=== PATIENT | male | born 2000 | race American Indian/Alaskan Native ===

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

== ENCOUNTER 2021-01-27 01:17 | Emergency (ER) | payer MEDICAID ==
--- NOTE | 2021-01-27 03:01 | Event Note ---
ED Screening Note Date of service: 01/27/21 Time: 03:01 ED Screening Note: Patient complains of auditory hallucinations History of schizophrenia and noncompliance with medications No SI/HI This initial assessment/diagnostic orders/clinical plan/treatment(s) is/are subject to change based on patients health status, clinical progression and re- assessment by fellow clinical providers in the ED. Further treatment and workup at subsequent clinical providers discretion. Patient/guardian urged not to elope from the ED as their condition may be serious if not clinically assessed and managed. Initial orders include: Labs Mental health eval
[2021-01-27 03:36] LABS: Basophils # (Auto) 0.1 K/mm3 (0.0-0.1); Basophils % (Auto) 0.5 % (0.0-1.8); Eosinophils # (Auto) 0.2 K/mm3 (0.0-0.4); Eosinophils % (Auto) 1.4 % (0.0-4.3); Hematocrit 46.7 % (35.5-45.6); Hemoglobin 15.1 gm/dl (11.8-15.2); Lymphocytes # (Auto) 4.2 K/mm3 (1.2-5.4); Lymphocytes % (Auto) 29.9 % (13.4-35.0); Mean Corpuscular HGB Conc 32 % (32-34); Mean Corpuscular Volume 82 fl (84-94); Monocytes # (Auto) 1.1 K/mm3 (0.0-0.8); Monocytes % (Auto) 7.5 % (0.0-7.3); Platelet Count 409 K/mm3 (140-440); Red Blood Count 5.72 M/mm3 (3.65-5.03); Red Cell Distribution Width 13.9 % (13.2-15.2)
[2021-01-27 03:47] LABS: BUN/Creatinine Ratio 14; Blood Urea Nitrogen 11 mg/dL (9-20); Calcium 9.7 mg/dL (8.4-10.2); Hemolysis Index 12
--- NOTE | 2021-01-27 03:57 | Emergency Department Report ---
HPI - General Chief Complaint: Psych Time Seen by Provider: 01/27/21 03:42 - HPI HPI: Room 12 A The patient is a 20-year-old male present with a chief complaint of auditory visual hallucinations. The patient has a history of psychosis and states he stopped taking his medication 2 days ago. The patient states he has had intermittent auditory visual hallucinations for the past 2 years but they worsened approximately 1 month ago. Patient states the voices say things such as "you did this" or "you did that" or "do these types of things." Patient st ates he also has visual hallucinations believing he has seen "souls" and is able to see "through a wall." The patient states 2 days ago he had suicidal ideation but did not make any attempts. Patient currently denies suicidal ideation ED Past Medical Hx - Past Medical History Previous Medical History?: Yes Hx Psychiatric Treatment: Yes (Psychosis) - Surgical History Past Surgical History?: No - Family History Family history: no significant - Social History Smoking Status: Current Every Day Smoker (1/2 pack/day) Substance Use Type: None (Denies illicit drug use) - Medications Home Medications: Home Medications Medication Instructions Recorded Confirmed Last Taken Type Amoxicillin/Potassium Clav 400 mg PO Q8H #100 ml 07/25/13 08/11/20 Unknown Rx [Augmentin 400-57MG / 5ml] OLANzapine [ZyPREXA] 5 mg PO QAM 08/11/20 08/11/20 Unknown History OLANzapine [Zyprexa] 10 mg PO QHS 08/11/20 08/11/[address] [Marek PEREZ] 125 mg PO BID #60 tablet 01/28/21 Unknown Rx OLANZapine [Zyprexa] 5 mg PO DAILY #30 tablet 01/28/21 Unknown Rx OLANzapine [Zyprexa] 10 mg PO QHS #30 tablet 01/28/21 Unknown Rx traZODone [Desyrel] 50 mg PO QHS #30 tab 01/28/21 Unknown Rx ED Review of Systems ROS: Stated complaint: BEHAVIORAL/PSYCHIATRIC DISORDER Other details as noted in HPI Constitutional: no symptoms reported Eyes: denies: eye pain ENT: denies: throat pain Respiratory: no symptoms reported Cardiovascular: denies: chest pain Endocrine: no symptoms reported Gastrointestinal: denies: abdominal pain Genitourinary: denies: dysuria Musculoskeletal: denies: back pain Neurological: denies: headache Psychiatric: auditory hallucinations, visual hallucinations, suicidal thoughts Physical Exam - Physical Exam Vital Signs: Vital Signs 01/27/21 02:01 Temperature 98.4 F Pulse Rate 105 H Respiratory 18 Rate Blood Pressure 145/86 O2 Sat by Pulse 97 Oximetry Physical Exam: GENERAL: The patient is well-developed well-nourished male sitting in chair not appearing to be in acute distress HEENT: Normocephalic. Atraumatic. Extraocular motions are intact. Patient has moist mucous membranes. NECK: Supple. Trachea midline CHEST/LUNGS: Clear to auscultation. There is no respiratory distress noted. HEART/CARDIOVASCULAR: Regular. There is no tachycardia. There is no gallop rub or murmur. ABDOMEN: Abdomen is soft, nontender. Patient has normal bowel sounds. There is no abdominal distention. SKIN: There is no rash. There is no edema. There is no diaphoresis. NEURO: The patient is awake, alert, and oriented. The patient is cooperative. The patient has no focal neurologic deficits. The patient has normal speech and gait. MUSCULOSKELETAL: There is no evidence of acute injury. ED Course Vital Signs 01/27/21 02:01 Temperature 98.4 F Pulse Rate 105 H Respiratory 18 Rate Blood Pressure 145/86 O2 Sat by Pulse 97 Oximetry ED Medical Decision Making - Lab Data Result diagrams: 01/27/21 02:36 01/27/21 02:36 Laboratory Tests 01/27/21 01/27/21 01/27/21 02:36 02:36 02:36 WBC 14.2 H RBC 5.72 H Hgb 15.1 Hct 46.7 H MCV 82 L MCH 27 L MCHC 32 RDW 13.9 Plt Count 409 Lymph % (Auto) 29.9 [place] % (Auto) 7.5 H Eos % (Auto) 1.4 Baso % (Auto) 0.5 Lymph # (Auto) 4.2 [place] # (Auto) 1.1 H Eos # (Auto) 0.2 Baso # (Auto) 0.1 Seg Neutrophils % 60.7 Seg Neutrophils # 8.6 H Sodium 138 Potassium 3.9 Chloride 100.3 Carbon Dioxide 23 Anion Gap 19 BUN 11 Creatinine 0.8 Estimated GFR > 60 BUN/Creatinine Ratio 14 Glucose 82 Calcium 9.7 Urine Color Urine Turbidity Urine pH Ur Specific [place] Urine Protein Urine Glucose (UA) Urine Ketones Urine Blood Urine Nitrite Urine Bilirubin Urine Urobilinogen Ur Leukocyte Esterase Urine WBC (Auto) Urine RBC (Auto) U Epithel Cells (Auto) Urine Mucus Salicylates < 0.3 L Urine Opiates Screen Urine Methadone Screen Acetaminophen Ur Barbiturates Screen Ur Phencyclidine Scrn Ur Amphetamines Screen U Benzodiazepines Scrn Urine Cocaine Screen U Marijuana (THC) Screen Drugs of Abuse Note 01/27/21 01/27/21 01/27/21 02:36 Unknown Unknown WBC RBC Hgb Hct MCV MCH MCHC RDW Plt Count Lymph % (Auto) [place] % (Auto) Eos % (Auto) Baso % (Auto) Lymph # (Auto) [place] # (Auto) Eos # (Auto) Baso # (Auto) Seg Neutrophils % Seg Neutrophils # Sodium Potassium Chloride Carbon Dioxide Anion Gap BUN Creatinine Estimated GFR BUN/Creatinine Ratio Glucose Calcium Urine Color Yellow Urine Turbidity Clear Urine pH 5.0 Ur Specific [place] 1.024 Urine Protein <15 mg/dl Urine Glucose (UA) Neg Urine Ketones Neg Urine Blood Neg Urine Nitrite Neg Urine Bilirubin Neg Urine Urobilinogen < 2.0 Ur Leukocyte Esterase Neg Urine WBC (Auto) 5.0 Urine RBC (Auto) 1.0 U Epithel Cells (Auto) 1.0 Urine Mucus Few Salicylates Urine Opiates Screen Presumptive negative Urine Methadone Screen Presumptive negative Acetaminophen 5.0 L Ur Barbiturates Screen Presumptive negative Ur Phencyclidine Scrn Presumptive negative Ur Amphetamines Screen Presumptive negative U Benzodiazepines Scrn Presumptive negative Urine Cocaine Screen Presumptive negative U Marijuana (THC) Screen Presumptive negative Drugs of Abuse Note Disclamer - Differential Diagnosis Auditory hallucinations, psychosis, schizophrenia Critical care attestation.: If time is entered above; I have spent that time in minutes in the direct care of this critically ill patient, excluding procedure time. ED Disposition Clinical Impression: Auditory hallucination, Visual hallucinations Disposition: DC-01 TO HOME OR SELFCARE Is pt being admited?: No Does the pt Need Aspirin: No Condition: Stable Instructions: Psychosis Additional Instructions: Professional and Agency Contacts To help Resolve Crises(12/04) [place] Crisis Line: Suicide Prevention Line: Crisis Text Line: Text START to [phone] Emergency: 911 Outpatient COMMUNITY Behavioral Health Resources: [place]: [facility] [address] [place] [address] [place]: [facility] [address] [place] [address] [place]: [facility] - [address] [place] [address] Wednesday thru Wednesday - 8am - 5pm [place]: [facility] Address: [address], [place] [address] [place]: [facility] Address: [address] [place] [address] Wednesday thru Wednesday- 7am-2pm [facility] Address: [address] [place] [address] Wednesday thru Wednesday: 8:30AM-5PM Prescriptions: Divalproex [Marek PEREZ] 125 mg PO BID #60 tablet traZODone [Desyrel] 50 mg PO QHS #30 tab OLANzapine [Zyprexa] 10 mg PO QHS #30 tablet OLANZapine [Zyprexa] 5 mg PO DAILY #30 tablet Referrals: PRIMARY CARE, [Primary Care Provider] - 3-5 Days
[2021-01-27 04:09] LABS: Bilirubin,Urine NEG (Negative); Blood,Urine NEG (Negative); Color,Urine Yellow (Yellow); Mucus,Urine FEW /HPF; Protein,Urine <15 mg/dL mg/dL (Negative); Urobilinogen,Urine < 2.0 mg/dL (<2.0)
[2021-01-27 04:46] LABS: Amphetamine Screen,Urine PRESUMPTIVE NEGATIVE; Benzodiazepines Screen,Urine PRESUMPTIVE NEGATIVE; Cannabinoid Screen,Urine PRESUMPTIVE NEGATIVE; Cocaine Screen,Urine PRESUMPTIVE NEGATIVE; Methadone Screen,Urine PRESUMPTIVE NEGATIVE; Opiate Screen,Urine PRESUMPTIVE NEGATIVE
--- NOTE | 2021-01-27 09:40 | Consultation ---
History of Present Illness - Reason for Consult Consult date: 01/27/21 Reason for consult: hallucinations - History of Present Psychiatric Illness Per ED Note: The patient is a 20-year-old male present with a chief complaint of auditory visual hallucinations. The patient has a history of psychosis and states he stopped taking his medication 2 days ago. The patient states he has had intermittent auditory visual hallucinations for the past 2 years but they worsened approximately 1 month ago. Patient states the voices say things such as "you did this" or "you did that" or "do these types of things." Patient states he also has visual hallucinations believing he has seen "souls" and is able to see "through a wall." The patient states 2 days ago he had suicidal ideation but did not make any attempts. Patient currently denies suicidal ideation The patient was seen today, he is lying down, a/o x 3. The patient says he had started hearing voice. He says he can't make out what they are saying. He is responding to internal stimuli. He tells me he "feels out of his body." He then moves his hands up and down the length of his body. He says he has a history of schizophrenia and doesn't remember any of his meds. He denies any illicit drug use. When asking about suicidal thoughts the patient initially says yes, then says no. PAST PSYCHIATRIC HISTORY Diagnoses: Schizophrenia Suicide attempts or Self-harm behavior: Yes Prior psychiatric hospitalizations: Yes Substance Abuse history: "weed" Previous psychiatric medications tried: doesn't remember Outpatient treatment: yes PAST MEDICAL HISTORY: Asthma Family Psychiatric History: None reported or documented SOCIAL HISTORY Marital Status: Single Living Arrangements: with family Employment Status: Unemployed Access to guns/weapons: None report Education: 11th grade History of Abuse: Denies Legal History: None reported REVIEW OF SYSTEMS Constitutional: Negative for weight loss ENT: Negative for stridor Respiratory: Negative for cough or hemoptysis All other systems reviewed and are negative MENTAL STATUS EXAMINATION General Appearance and Behavior: Age appropriate, good hygiene, wearing appropriate clothes, good eye contact, upset, aggressive Cooperation: Participating/engaged, but Guarded Psychomotor Behavior: Psychomotor normal Mood: not good Affect and affective range: angry Thought Process: illogical Thought Content: SI, hallucinations Speech: Normal rate, volume and rhythm Intellectual Functioning: Average Suicidal Ideation: unclear Homicidal Ideation: Denies Impulse Control: impaired Insight and Judgment: Limited insight and judgment Memory: Normal Attention: Normal Orientation: Alert, oriented Assessment and Plan (1) Schizophrenia Current Visit: Yes Status: Acute Treatment Plan Trazodone 50mg po qhs Olanzapine 10mg po qhs Olanzapin 5mg po qam Depakote DR 125mg po BID Risks, benefits and alternatives of medications discussed with the patient, questions answered and consent obtained from patient. PSYCHOTHERAPY: Supportive psychotherapy provided MEDICAL: Per primary team DELIRIUM PRECAUTIONS: Please re-orient patient frequently, keep lights on during the day, and minimize benzodiazepines and opiates as these medications could worsen patient's confusion. 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 Will follow. Thank you for the consult. Please contact with any questions and/or concerns. Case discussed with Dr. Alva who agrees with current disposition Medications and Allergies Allergies Allergy/AdvReac Type Severity Reaction Status Date / Time No Known Allergies Allergy Unverified 07/25/13 13:43 Home Medications Medication Instructions Recorded Confirmed Last Taken Type Amoxicillin/Potassium Clav 400 mg PO Q8H #100 ml 07/25/13 08/11/20 Unknown Rx [Augmentin 400-57MG / 5ml] OLANzapine [ZyPREXA] 5 mg PO QAM 08/11/20 08/11/20 Unknown History OLANzapine [Zyprexa] 10 mg PO QHS 08/11/20 08/11/20 Unknown History Mental Status Exam - Vital signs Last Vital Signs Temp 98.4 F 01/27/21 02:01 Pulse 105 H 01/27/21 02:01 Resp 20 01/27/21 03:30 BP 145/86 01/27/21 02:01 Pulse Ox 98 01/27/21 03:30 Results Result Diagrams: 01/27/21 02:36 01/27/21 02:36 Abnormal lab results 01/27/21 01/27/21 01/27/21 Range/Units 02:36 02:36 02:36 WBC 14.2 H (4.5-11.0) K/mm3 RBC 5.72 H (3.65-5.03) M/mm3 Hct 46.7 H (35.5-45.6) % MCV 82 L (84-94) fl MCH 27 L (28-32) pg [place] % (Auto) 7.5 H (0.0-7.3) % [place] # (Auto) 1.1 H (0.0-0.8) K/mm3 Seg Neutrophils # 8.6 H (1.8-7.7) K/mm3 Salicylates < 0.3 L (2.8-20.0) mg/dL Acetaminophen 5.0 L (10.0-30.0) ug/mL All other labs normal.
--- NOTE | 2021-01-27 10:23 | Event Note ---
Date: 01/27/21 The patient was evaluated in the emergency department for symptoms described in the history of present illness. He/she was evaluated in the context of the global COVID-19 pandemic, which necessitated consideration that the patient might be at risk for infection with the virus that causes COVID-19. Institutional protocols and algorithms that pertain to the evaluation of patients at risk for COVID-19 are in a state of rapid change based on information released by regulatory bodies including the CDC and federal and state organizations. These policies and algorithms were followed during the patient's care in the emergency department. Please note that these policies, procedures and recommendations changed on a rapid basis. Patient resting comfortably in chair. In no acute distress. Initial ER work-up and documentation reviewed and appreciated. Psychiatric recommendations reviewed and appreciated. Nursing team has endorsed no immediate concerns, and the patient has not articulated any concerns to nursing team. Patient does not appear to have an immediate medical condition at this time which would preclude psychiatric evaluation, consultation, and placement at this time. Vital Signs 01/27/21 01/27/21 02:01 03:30 Temperature 98.4 F Pulse Rate 105 H Respiratory 18 20 Rate Blood Pressure 145/86 O2 Sat by Pulse 97 98 Oximetry Lab Results 01/27/21 01/27/21 01/27/21 Range/Units 02:36 02:36 02:36 WBC 14.2 H (4.5-11.0) K/mm3 RBC 5.72 H (3.65-5.03) M/mm3 Hgb 15.1 (11.8-15.2) gm/dl Hct 46.7 H (35.5-45.6) % MCV 82 L (84-94) fl MCH 27 L (28-32) pg MCHC 32 (32-34) % RDW 13.9 (13.2-15.2) % Plt Count 409 (140-440) K/mm3 Lymph % (Auto) 29.9 (13.4-35.0) % [place] % (Auto) 7.5 H (0.0-7.3) % Eos % (Auto) 1.4 (0.0-4.3) % Baso % (Auto) 0.5 (0.0-1.8) % Lymph # (Auto) 4.2 (1.2-5.4) K/mm3 [place] # (Auto) 1.1 H (0.0-0.8) K/mm3 Eos # (Auto) 0.2 (0.0-0.4) K/mm3 Baso # (Auto) 0.1 (0.0-0.1) K/mm3 Seg Neutrophils % 60.7 (40.0-70.0) % Seg Neutrophils # 8.6 H (1.8-7.7) K/mm3 Sodium 138 (137-145) mmol/L Potassium 3.9 (3.6-5.0) mmol/L Chloride 100.3 (98-107) mmol/L Carbon Dioxide 23 (22-30) mmol/L Anion Gap 19 mmol/L BUN 11 (9-20) mg/dL Creatinine 0.8 (0.8-1.3) mg/dL Estimated GFR > 60 ml/min BUN/Creatinine Ratio 14 % Glucose 82 (75-100) mg/dL Calcium 9.7 (8.4-10.2) mg/dL Urine Color (Yellow) Urine Turbidity (Clear) Urine pH (5.0-7.0) Ur Specific [place] (1.003-1.030) Urine Protein (Negative) mg/dL Urine Glucose (UA) (Negative) mg/dL Urine Ketones (Negative) mg/dL Urine Blood (Negative) Urine Nitrite (Negative) Urine Bilirubin (Negative) Urine Urobilinogen (<2.0) mg/dL Ur Leukocyte Esterase (Negative) Urine WBC (Auto) (0.0-6.0) /HPF Urine RBC (Auto) (0.0-6.0) /HPF U Epithel Cells (Auto) (0-13.0) /HPF Urine Mucus /HPF Salicylates < 0.3 L (2.8-20.0) mg/dL Urine Opiates Screen Urine Methadone Screen Acetaminophen (10.0-30.0) ug/mL Ur Barbiturates Screen Ur Phencyclidine Scrn Ur Amphetamines Screen U Benzodiazepines Scrn Urine Cocaine Screen U Marijuana (THC) Screen Drugs of Abuse Note 01/27/21 01/27/21 01/27/21 Range/Units 02:36 Unknown Unknown WBC (4.5-11.0) K/mm3 RBC (3.65-5.03) M/mm3 Hgb (11.8-15.2) gm/dl Hct (35.5-45.6) % MCV (84-94) fl MCH (28-32) pg MCHC (32-34) % RDW (13.2-15.2) % Plt Count (140-440) K/mm3 Lymph % (Auto) (13.4-35.0) % [place] % (Auto) (0.0-7.3) % Eos % (Auto) (0.0-4.3) % Baso % (Auto) (0.0-1.8) % Lymph # (Auto) (1.2-5.4) K/mm3 [place] # (Auto) (0.0-0.8) K/mm3 Eos # (Auto) (0.0-0.4) K/mm3 Baso # (Auto) (0.0-0.1) K/mm3 Seg Neutrophils % (40.0-70.0) % Seg Neutrophils # (1.8-7.7) K/mm3 Sodium (137-145) mmol/L Potassium (3.6-5.0) mmol/L Chloride (98-107) mmol/L Carbon Dioxide (22-30) mmol/L Anion Gap mmol/L BUN (9-20) mg/dL Creatinine (0.8-1.3) mg/dL Estimated GFR ml/min BUN/Creatinine Ratio % Glucose (75-100) mg/dL Calcium (8.4-10.2) mg/dL Urine Color Yellow (Yellow) Urine Turbidity Clear (Clear) Urine pH 5.0 (5.0-7.0) Ur Specific [place] 1.024 (1.003-1.030) Urine Protein <15 mg/dl (Negative) mg/dL Urine Glucose (UA) Neg (Negative) mg/dL Urine Ketones Neg (Negative) mg/dL Urine Blood Neg (Negative) Urine Nitrite Neg (Negative) Urine Bilirubin Neg (Negative) Urine Urobilinogen < 2.0 (<2.0) mg/dL Ur Leukocyte Esterase Neg (Negative) Urine WBC (Auto) 5.0 (0.0-6.0) /HPF Urine RBC (Auto) 1.0 (0.0-6.0) /HPF U Epithel Cells (Auto) 1.0 (0-13.0) /HPF Urine Mucus Few /HPF Salicylates (2.8-20.0) mg/dL Urine Opiates Screen Presumptive negative Urine Methadone Screen Presumptive negative Acetaminophen 5.0 L (10.0-30.0) ug/mL Ur Barbiturates Screen Presumptive negative Ur Phencyclidine Scrn Presumptive negative Ur Amphetamines Screen Presumptive negative U Benzodiazepines Scrn Presumptive negative Urine Cocaine Screen Presumptive negative U Marijuana (THC) Screen Presumptive negative Drugs of Abuse Note Disclamer
[2021-01-27] MEDS ORDERED: LORazepam 2 MG/ML VIAL IM PRN (10:24)
[2021-01-27] MEDS ORDERED: ACETAMINOPHEN 325 MG TAB PO PRN (10:24)
[2021-01-27] MEDS ORDERED: ONDANSETRON 4 MG ODT TAB PO PRN (10:24)
[2021-01-27] MEDS ORDERED: diphenhydrAMINE 25 MG CAP PO PRN (10:24)
[2021-01-27] MEDS: DIVALPROEX DR 125 MG TAB PO SCH ×2 (12:11→23:39)
[2021-01-27] MEDS ORDERED: traZODone 50 MG TAB PO SCH (22:00)
--- NOTE | 2021-01-28 09:09 | Progress Note ---
Subjective - Reason for Consult Consult date: 01/28/21 Reason for consult: psychosis - Chief Complaint Chief complaint: Per Nursing Staff: The patient has been calm, cooperative and expressed no SI/HI or A/V hallucinations. The patient was seen today, he is getting his vitals checked. The patient verbalized feeling tired, but over all good when asked. He says he "feels stable mentally but was out of his meds." The patient says "I get better when I'm on them." Discussed with the patient the importance of complying with his medical treatment. The patient denies SI/HI or hallucinations of any kind. REVIEW OF SYSTEMS Constitutional: Negative for weight loss ENT: Negative for stridor Respiratory: Negative for cough or hemoptysis All other systems reviewed and are negative MENTAL STATUS EXAMINATION General Appearance and Behavior: Age appropriate, good hygiene, wearing appropriate clothes, good eye contact, calm, and cooperative Cooperation: Participating/engaged, but Guarded Psychomotor Behavior: Psychomotor normal Mood: good Affect and affective range: congruent with stated mood Thought Process: Goal directed Thought Content: None Speech: Normal rate, volume and rhythm Intellectual Functioning: Average Suicidal Ideation: Denies Homicidal Ideation: Denies Hallucinations: Denies Delusions: None elicited Impulse Control: impaired Insight and Judgment: Limited insight and judgment Memory: Normal Attention: Normal Orientation: Alert, oriented Assessment and Plan (1) Schizophrenia Current Visit: Yes Status: Acute Treatment Plan d/c 1013 Trazodone 50mg po qhs Olanzapine 10mg po qhs Olanzapin 5mg po qam Depakote DR 125mg po BID Risks, benefits and alternatives of medications discussed with the patient, questions answered and consent obtained from patient. PSYCHOTHERAPY: Supportive psychotherapy provided MEDICAL: Per primary team DELIRIUM PRECAUTIONS: Please re-orient patient frequently, keep lights on during the day, and minimize benzodiazepines and opiates as these medications could worsen patient's confusion. 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 The patient understands if SI/HI or any fear of endangerment arise he is to seek immediate assistance. The patient is to follow up with outpatient psych and primary in 7 to 14 days upon discharge. Will sign off. Thank you for the consult. Please contact with any questions and/or concerns. Case discussed with Dr. Alva who agrees with current disposition Mental Status Exam - Vital signs Last Vital Signs Temp 98.9 F 01/27/21 20:00 Pulse 81 01/27/21 20:00 Resp 18 01/27/21 23:12 BP 112/80 01/27/21 20:00 Pulse Ox 100 01/27/21 23:12
--- NOTE | 2021-01-28 10:15 | Emergency Department Report ---
Blank Doc - Documentation Documentation: No new issues Psych has cleared
[2021-01-28] MEDS: DIVALPROEX DR 125 MG TAB PO SCH (10:46)
[2021-01-28 15:49] VITALS: BP 114/68
== END 2021-01-28 16:00 | disposition home or self-care (01) ==
LOC: ED 01:17
DX: R44.0 Auditory hallucinations (principal); R44.1 Visual hallucinations; F17.200 Nicotine dependence, unspecified, uncomplicated; Z79.899 Other long term (current) drug therapy; Z20.822 Contact with and (suspected) exposure to COVID-19
CPT/HCPCS: 36415; 80048; 80307; 81001; 85025; 99284; U0003; 80320; G0480

== ENCOUNTER 2021-03-07 00:51 | Emergency (ER) | payer MEDICAID ==
[2021-03-07] MEDS ORDERED: diphenhydrAMINE 50 MG/ML VIAL IM ONE (01:03)
[2021-03-07] MEDS ORDERED: HALOPERIDOL LACTATE 5 MG/1 ML INJ IM ONE (01:03)
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
[2021-03-07] MEDS ORDERED: ZIPRASIDONE MESYLATE 20 MG VIAL IM ONE (02:22)
[2021-03-07] MEDS ORDERED: LORazepam 2 MG/ML VIAL IM ONE (02:23)
[2021-03-07 03:24] LABS: Basophils % (Auto) 0.1 % (0.0-1.8); Eosinophils % (Auto) 0.1 % (0.0-4.3); Hematocrit 42.8 % (35.5-45.6); Hemoglobin 14.6 gm/dl (11.8-15.2); Lymphocytes # (Auto) 1.8 K/mm3 (1.2-5.4); Mean Corpuscular HGB Conc 34 % (32-34); Mean Corpuscular Volume 82 fl (84-94); Monocytes # (Auto) 0.9 K/mm3 (0.0-0.8); Monocytes % (Auto) 5.8 % (0.0-7.3); Platelet Count 345 K/mm3 (140-440); Red Blood Count 5.21 M/mm3 (3.65-5.03); Red Cell Distribution Width 13.4 % (13.2-15.2)
[2021-03-07 03:57] LABS: Alanine Aminotransferase 125 units/L (7-56); Albumin 5.1 g/dL (3.9-5); BUN/Creatinine Ratio 11; Blood Urea Nitrogen 11 mg/dL (9-20); Calcium 10.5 mg/dL (8.4-10.2); Hemolysis Index 10
--- NOTE | 2021-03-07 10:24 | Event Note ---
Date: 03/07/21 This patient presented overnight last night, about 8 hours ago, for hallucinations and agitation. He required Haldol and Benadryl for treatment of his psychosis and chemical sedation. Patient's labs shows a mild leukocytosis which is most likely reactive to his agitation, but vital signs do not show any fever. Labs also show some mild transaminitis. Despite these mild lab abnormalities, I do not feel that this precludes the patient from being medically cleared or inpatient stabilization if necessary. At the time of my examination the patient is in bed #13, although not in seclusion, and resting comfortably. He does not appear jaundiced. His initial vital signs showed some mild tachycardia but once again this was upon arrival with his agitation. This morning the patient has refused repeat vital signs or any medication. Home medications have not been updated yet secondary to the patient's compliance/cooperation and therefore have not yet been reconciled. We are waiting for a urinalysis and UDS. The patient will need a psychiatric evaluation. We will continue to monitor this patient during his ED course.
--- NOTE | 2021-03-07 11:32 | History and Physical Report ---
GP History & Physical - History of Present Illness Date of admission: 03/06/21 Date of Examination: 03/07/21 Reason for Admission: Danger to self, Danger to others, Failure of Outpatient Treatment History of Present Illness: Per ED Note: 20-year-old male with history of schizophrenia brought in by EMS after he was found hearing voices and was extremely agitated. The patient reports that he is hearing voices telling him about children being killed. He denies SI or HI but is highly agitated and refused to participate further in the interview. At this point he became severely agitated and violent and security was present to assist and escort the patient to the psychiatric area where he could be given medications so that he is not a threat to staff and himself any longer and will defer further interview and examination until then. 20y/o Ivan Durán was seen today. The patient is lying down in the isolation room. The staff nurse says he was paranoid and given an injection. She says he was placed in isolation due to his paranoia. The patient told me that he though "people were trying to hurt children." He says he's been off his meds for a few days. He denies hallucinations of any kind. He also denies any illicit drug use. He denies SI/HI, although he states at times "voices tell him to hurt himself." PAST PSYCHIATRIC HISTORY Diagnoses: Schizophrenia Suicide attempts or Self-harm behavior: Yes Prior psychiatric hospitalizations: Yes Substance Abuse history: "weed" Previous psychiatric medications tried: doesn't remember Outpatient treatment: yes PAST MEDICAL HISTORY: Asthma Family Psychiatric History: None reported or documented SOCIAL HISTORY Marital Status: Single Living Arrangements: with family Employment Status: Unemployed Access to guns/weapons: None report Education: 11th grade History of Abuse: Denies Legal History: None reported REVIEW OF SYSTEMS Constitutional: Negative for weight loss ENT: Negative for stridor Respiratory: Negative for cough or hemoptysis All other systems reviewed and are negative MENTAL STATUS EXAMINATION General Appearance and Behavior: Age appropriate, good hygiene, wearing appropriate clothes, good eye contact, Cooperation: Participating/engaged, but Guarded Psychomotor Behavior: Psychomotor normal Mood: not good Affect and affective range: angry Thought Process: illogical Thought Content: SI, hallucinations at times Speech: Normal rate, volume and rhythm Intellectual Functioning: Average Suicidal Ideation: Denies Homicidal Ideation: Denies Hallucinations: At times Delusions: yes, Paranoia Impulse Control: impaired Insight and Judgment: Limited insight and judgment Memory: Limited Attention: Normal Orientation: Alert, oriented Assessment and Plan (1) Schizophrenia Current Visit: Yes Status: Acute Treatment Plan Olanzapine 10mg po qhs Olanzapin 5mg po qam Depakote DR 125mg po BID Risks, benefits and alternatives of medications discussed with the patient, questions answered and consent obtained from patient. PSYCHOTHERAPY: Supportive psychotherapy provided MEDICAL: Per primary team DELIRIUM PRECAUTIONS: Please re-orient patient frequently, keep lights on during the day, and minimize benzodiazepines and opiates as these medications could worsen patient's confusion. TANKAGE GRINDER: Per primary DISPOSITION: Recommend acute inpatient psychiatric hospitalization at this time. Will follow. Thank you for the consult. Please contact with any questions and/or concerns. Case discussed with Dr. Alva who agrees with current disposition Legal Status: Voluntary Patient Problems: Current Active Problems Auditory hallucination (Acute) Elevated transaminase level (Acute) Psychosis (Acute) Reaction to Hospitalization: Accepting Medications and Allergies Allergies Allergy/AdvReac Type Severity Reaction Status Date / Time No Known Allergies Allergy Unverified 07/25/13 13:43 Home Medications Medication Instructions Recorded Confirmed Last Taken Type OLANZapine [Zyprexa] 5 mg PO DAILY #30 tablet 01/28/21 03/03/21 Rx OLANzapine [Zyprexa] 10 mg PO QHS #30 tablet 01/28/21 03/03/21 Rx Active Meds: Active Medications Olanzapine (Olanzapine 5 Mg Tab) 5 mg PO DAILY [facility] Last Admin: 03/07/21 09:43 Dose: Not Given Documented by: Olanzapine (Olanzapine 10 Mg Tab) 10 mg PO QHS [facility] Results - Results Labs/Vitals: Laboratory Last Values WBC 15.3 K/mm3 (4.5-11.0) H 03/07/21 02:42 RBC 5.21 M/mm3 (3.65-5.03) H 03/07/21 02:42 Hgb 14.6 gm/dl (11.8-15.2) 03/07/21 02:42 Hct 42.8 % (35.5-45.6) 03/07/21 02:42 MCV 82 fl (84-94) L 03/07/21 02:42 MCH 28 pg (28-32) 03/07/21 02:42 MCHC 34 % (32-34) 03/07/21 02:42 RDW 13.4 % (13.2-15.2) 03/07/21 02:42 Plt Count 345 K/mm3 (140-440) 03/07/21 02:42 Lymph % (Auto) 12.0 % (13.4-35.0) L 03/07/21 02:42 [place] % (Auto) 5.8 % (0.0-7.3) 03/07/21 02:42 Eos % (Auto) 0.1 % (0.0-4.3) 03/07/21 02:42 Baso % (Auto) 0.1 % (0.0-1.8) 03/07/21 02:42 Lymph # (Auto) 1.8 K/mm3 (1.2-5.4) 03/07/21 02:42 [place] # (Auto) 0.9 K/mm3 (0.0-0.8) H 03/07/21 02:42 Eos # (Auto) 0.0 K/mm3 (0.0-0.4) 03/07/21 02:42 Baso # (Auto) 0.0 K/mm3 (0.0-0.1) 03/07/21 02:42 Seg Neutrophils % 82.0 % (40.0-70.0) H 03/07/21 02:42 Seg Neutrophils # 12.5 K/mm3 (1.8-7.7) H 03/07/21 02:42 Sodium 139 mmol/L (137-145) 03/07/21 02:42 Potassium 4.2 mmol/L (3.6-5.0) 03/07/21 02:42 Chloride 99.4 mmol/L (98-107) 03/07/21 02:42 Carbon Dioxide 26 mmol/L (22-30) 03/07/21 02:42 Anion Gap 18 mmol/L 03/07/21 02:42 BUN 11 mg/dL (9-20) 03/07/21 02:42 Creatinine 1.0 mg/dL (0.8-1.3) 03/07/21 02:42 Estimated GFR > 60 ml/min 03/07/21 02:42 BUN/Creatinine Ratio 11 % 03/07/21 02:42 Glucose 94 mg/dL (75-100) 03/07/21 02:42 Calcium 10.5 mg/dL (8.4-10.2) H 03/07/21 02:42 Total Bilirubin 0.60 mg/dL (0.1-1.2) 03/07/21 02:42 AST 66 units/L (5-40) H 03/07/21 02:42 ALT 125 units/L (7-56) H 03/07/21 02:42 Alkaline Phosphatase 93 units/L (35-129) 03/07/21 02:42 Total Protein 7.5 g/dL (6.3-8.2) 03/07/21 02:42 Albumin 5.1 g/dL (3.9-5) H 03/07/21 02:42 Albumin/Globulin Ratio 2.1 % 03/07/21 02:42 Salicylates < 0.3 mg/dL (2.8-20.0) L 03/07/21 02:42 Acetaminophen 5.0 ug/mL (10.0-30.0) L 03/07/21 02:42 Plasma/Serum Alcohol < 0.01 % (0-0.07) 03/07/21 02:42 Last Vital Signs Temp 98.8 F 03/07/21 02:43 Pulse 115 H 03/07/21 02:43 Resp 16 03/07/21 03:53 BP 138/75 03/07/21 02:43 Pulse Ox 99 03/07/21 03:53 Physical Examination - Constitutional Vitals: Vital Signs Temp Pulse Resp BP Pulse Ox 98.8 F 115 H 16 138/75 99 03/07/21 02:43 03/07/21 02:43 03/07/21 03:53 03/07/21 02:43 03/07/21 03:53 Temperature -Last 24 Hours Temperature 98.8 F Mental Status Exam - Vital signs Last Vital Signs Temp 98.8 F 03/07/21 02:43 Pulse 115 H 03/07/21 02:43 Resp 16 03/07/21 03:53 BP 138/75 03/07/21 02:43 Pulse Ox 99 03/07/21 03:53 Physician Certification - Certification Statement Physician Certification Statement: This is an acknowledgement statement that KEVIN VAUGHAN is a 20 year old M who requires inpatient psychiatric admission for treatment which could reasonably be expected to improve the patient's condition for Estimated period of time patient will need to remain in the hospital: [ ] Plan for post-hospital care: [ ]
[2021-03-07] MEDS: DIVALPROEX DR 125 MG TAB PO SCH (12:02)
[2021-03-07 19:55] VITALS: BP 140/79
[2021-03-08 00:54] LABS: Bacteria,Urine 1+ /HPF (Negative); Bilirubin,Urine NEG (Negative); Blood,Urine NEG (Negative); Color,Urine Yellow (Yellow); Mucus,Urine 2+ /HPF
[2021-03-08 00:59] LABS: Amphetamine Screen,Urine Negative; Benzodiazepines Screen,Urine Negative; Cannabinoid Screen,Urine Negative; Cocaine Screen,Urine Negative; Methadone Screen,Urine Negative; Opiate Screen,Urine Negative
[2021-03-08] MEDS: DIVALPROEX DR 125 MG TAB PO SCH (10:07)
--- NOTE | 2021-03-08 10:23 | Event Note ---
Date: 03/08/21 Patient is 20 years old male admitted to the ER for acute psychosis. No overnight issues. Labs reviewed and showed leukocytosis. Urine showed ketones indicating mild dehydration. Patient given oral hydration. I will repeat see CBC today. Vital sign reviewed and is unremarkable. Patient is waiting for placement.
--- NOTE | 2021-03-08 11:10 | Progress Note ---
Subjective - Reason for Consult Consult date: 03/08/21 Reason for consult: psychosis - Chief Complaint Chief complaint: The patient was seen today, he is calm and cooperative. He is awake and alert. He does have a delayed response at times. He says "this is how I am. I'm just waking up." The patient says "I feel good" when asked how he was feeling. He says "my mood feels better." He denies SI/HI. He also denies hallucinations of any kind. REVIEW OF SYSTEMS Constitutional: Negative for weight loss ENT: Negative for stridor Respiratory: Negative for cough or hemoptysis All other systems reviewed and are negative MENTAL STATUS EXAMINATION General Appearance and Behavior: Age appropriate, good hygiene, wearing appropriate clothes, good eye contact, Cooperation: Participating/engaged Psychomotor Behavior: Psychomotor normal Mood: "good" Affect and affective range: Restricted Thought Process: Goal oriented Thought Content: None Speech: Normal rate, volume and rhythm, delayed responses at times Suicidal Ideation: Denies Homicidal Ideation: Denies Hallucinations: Denies Delusions: None elicited Impulse Control: Unimpaired Insight and Judgment: Limited insight and judgment Memory: Limited Attention: Normal Orientation: Alert, oriented Assessment and Plan (1) Schizophrenia Current Visit: Yes Status: Acute Treatment Plan D/c 1013 Continue Home Olanzapine 10mg po qhs Continue Home Olanzapin 5mg po qam Script given for Depakote DR 125mg po BID Risks, benefits and alternatives of medications discussed with the patient, questions answered and consent obtained from patient. PSYCHOTHERAPY: Supportive psychotherapy provided MEDICAL: Per primary team DELIRIUM PRECAUTIONS: Please re-orient patient frequently, keep lights on during the day, and minimize benzodiazepines and opiates as these medications could worsen patient's confusion. RESIDENTIAL SALES CONSULTANT: Per primary DISPOSITION: Do not recommend acute inpatient psychiatric hospitalization at this time. The window cutter to give the patient outpatient resources and discuss safety plan The patient to follow up in 7 to 14 days upon discharge Will sign off. Thank you for the consult. Please contact with any questions and/or concerns. Case discussed with Dr. Alva who agrees with current disposition Mental Status Exam - Vital signs Last Vital Signs Temp 98.8 F 03/07/21 19:53 Pulse 100 H 03/07/21 19:53 Resp 18 03/08/21 00:00 BP 140/79 03/07/21 19:53 Pulse Ox 97 03/08/21 00:00
== END 2021-03-08 12:38 | disposition home or self-care (01) ==
LOC: ED 00:51
DX: R44.0 Auditory hallucinations (principal); R74.01 Elevation of levels of liver transaminase levels; F17.200 Nicotine dependence, unspecified, uncomplicated; Z20.822 Contact with and (suspected) exposure to COVID-19; Z79.899 Other long term (current) drug therapy
CPT/HCPCS: 36415; 80053; 80307; 81001; 85025; 96372; 99284; J1200; J1630; U0003; 80320; G0480

== ENCOUNTER 2021-04-01 16:42 | Emergency (ER) | payer MEDICAID ==
[2021-04-01 18:14] LABS: Hematocrit 50.2 % (35.5-45.6); Hemoglobin 16.9 gm/dl (11.8-15.2); Mean Corpuscular HGB Conc 34 % (32-34); Mean Corpuscular Volume 81 fl (84-94); Platelet Count 340 K/mm3 (140-440); Red Blood Count 6.17 M/mm3 (3.65-5.03); Red Cell Distribution Width 13.8 % (13.2-15.2)
--- NOTE | 2021-04-01 18:19 | Emergency Department Report ---
ED General Adult HPI - General Chief complaint: Psych Stated complaint: BEHAVORIAL PROMBLEMS/NOT EATING Time Seen by Provider: 04/01/21 17:52 Source: EMS Mode of arrival: Ambulatory Limitations: No Limitations - History of Present Illness Initial comments: The patient presents to the emergency department via EMS for medical evaluation. Patient has a history of autism per EMS and schizophrenia. They state the patient's mother called for the assistance today because the patient has not eaten or had anything to drink for the last 2 weeks. Upon arrival they were presented with pallor of county attorney over the patient's medical needs. Per EMS the patient barricaded himself in the room but was not combative or psychotic with them on their arrival. Patient refuses to answer questions on my attempt to obtain history. -: unknown Improves with: none Worsens with: none Associated Symptoms: denies other symptoms Treatments Prior to Arrival: none - Related Data Previous Rx's Medication Instructions Recorded Last Taken Type OLANZapine [Zyprexa] 5 mg PO DAILY #30 tablet 01/28/21 03/03/21 Rx OLANzapine [Zyprexa] 10 mg PO QHS #30 tablet 01/28/21 03/03/[address] [DepaKOTE DR] 125 mg PO BID #60 tablet 03/08/21 Unknown Rx Allergies Allergy/AdvReac Type Severity Reaction Status Date / Time No Known Allergies Allergy Unverified 07/25/13 13:43 ED Review of Systems ROS: Stated complaint: BEHAVORIAL PROMBLEMS/NOT EATING Other details as noted in HPI Comment: Unobtainable due to pts medical conditions (Unable to obtain due to the patient not cooperating with history and physical. Patient refuses to speak to me.) ED Past Medical Hx - Past Medical History Hx Psychiatric Treatment: Yes (Psychosis) - Social History Smoking Status: Current Every Day Smoker (1/2 pack/day) Substance Use Type: None (Denies illicit drug use) - Medications Home Medications: Home Medications Medication Instructions Recorded Confirmed Last Taken Type OLANZapine [Zyprexa] 5 mg PO DAILY #30 tablet 01/28/21 03/03/21 Rx OLANzapine [Zyprexa] 10 mg PO QHS #30 tablet 01/28/21 03/03/[address] [DepaKOTE DR] 125 mg PO BID #60 tablet 03/08/21 Unknown Rx ED Physical Exam - General Limitations: No Limitations General appearance: alert, in no apparent distress - Head Head exam: Present: atraumatic, normocephalic - Eye Eye exam: Present: normal appearance, PERRL, EOMI - ENT ENT exam: Present: mucous membranes dry - Neck Neck exam: Present: normal inspection - Respiratory Respiratory exam: Present: normal lung sounds bilaterally. Absent: respiratory distress - Cardiovascular Cardiovascular Exam: Present: regular rate, normal rhythm. Absent: systolic murmur, diastolic murmur, rubs, gallop - GI/Abdominal GI/Abdominal exam: Present: soft, normal bowel sounds. Absent: distended, tenderness - Rectal Rectal exam: Present: deferred - Extremities Exam Extremities exam: Present: normal inspection - Back Exam Back exam: Present: normal inspection - Neurological Exam Neurological exam: Present: alert, other (Not able to obtain a complete neurological exam due to the patient's refusal to cooperate) - Psychiatric Psychiatric exam: Present: other (Not able to completely assess due to the patient's refusal to cooperate with exam) - Skin Skin exam: Present: warm, dry, intact, normal color. Absent: rash ED Medical Decision Making - Lab Data Result diagrams: 04/01/21 17:55 04/01/21 17:55 Lab Results 04/01/21 04/01/21 04/01/21 Range/Units 17:55 17:55 17:55 WBC 17.8 H (4.5-11.0) K/mm3 RBC 6.17 H (3.65-5.03) M/mm3 Hgb 16.9 H (11.8-15.2) gm/dl Hct 50.2 H (35.5-45.6) % MCV 81 L (84-94) fl MCH 27 L (28-32) pg MCHC 34 (32-34) % RDW 13.8 (13.2-15.2) % Plt Count 340 (140-440) K/mm3 Add Manual Diff Complete Total Counted 100 Seg Neuts % (Manual) 82.0 H (40.0-70.0) % Lymphocytes % (Manual) 9.0 L (13.4-35.0) % Monocytes % (Manual) 9.0 H (0.0-7.3) % Nucleated RBC % Not Reportable Seg Neutrophils # Man 14.6 H (1.8-7.7) K/mm3 Band Neutrophils # 0.0 K/mm3 Lymphocytes # (Manual) 1.6 (1.2-5.4) K/mm3 Abs React Lymphs (Man) 0.0 K/mm3 Monocytes # (Manual) 1.6 H (0.0-0.8) K/mm3 Eosinophils # (Manual) 0.0 (0.0-0.4) K/mm3 Basophils # (Manual) 0.0 (0.0-0.1) K/mm3 Metamyelocytes # 0.0 K/mm3 Myelocytes # 0.0 K/mm3 Promyelocytes # 0.0 K/mm3 Blast Cells # 0.0 K/mm3 WBC Morphology Not Reportable Hypersegmented Neuts Not Reportable Hyposegmented Neuts Not Reportable Hypogranular Neuts Not Reportable Smudge Cells Not Reportable Toxic Granulation Not Reportable Toxic Vacuolation Not Reportable Dohle Bodies Not Reportable Pelger-Huet Anomaly Not Reportable Jennifer Rods Not Reportable Platelet Estimate Not Reportable Clumped Platelets Not Reportable Plt Clumps, EDTA Not Reportable Large Platelets Not Reportable Giant Platelets Not Reportable Platelet Satelliting Not Reportable Plt Morphology Comment Not Reportable RBC Morphology Normal Dimorphic RBCs Not Reportable Polychromasia Not Reportable Hypochromasia Not Reportable Poikilocytosis Not Reportable Anisocytosis Not Reportable Microcytosis Not Reportable Macrocytosis Not Reportable Spherocytes Not Reportable Pappenheimer Bodies Not Reportable Sickle Cells Not Reportable Target Cells Not Reportable Tear Drop Cells Not Reportable Ovalocytes Not Reportable Helmet Cells Not Reportable Rajan-Hilger Bodies Not Reportable [place] Rings Not Reportable Amory Cells Not Reportable Bite Cells Not Reportable Crenated Cell Not Reportable Elliptocytes Not Reportable Acanthocytes (Spur) Not Reportable Rouleaux Not Reportable Hemoglobin C Crystals Not Reportable Schistocytes Not Reportable Malaria parasites Not Reportable Erik Bodies Not Reportable Hem Pathologist Commnt No Sodium (137-145) mmol/L Potassium (3.6-5.0) mmol/L Chloride (98-107) mmol/L Carbon Dioxide (22-30) mmol/L Anion Gap mmol/L BUN (9-20) mg/dL Creatinine (0.8-1.3) mg/dL Estimated GFR ml/min BUN/Creatinine Ratio % Glucose (75-100) mg/dL Calcium (8.4-10.2) mg/dL Total Bilirubin (0.1-1.2) mg/dL AST (5-40) units/L ALT (7-56) units/L Alkaline Phosphatase (35-129) units/L Total Protein (6.3-8.2) g/dL Albumin (3.9-5) g/dL Albumin/Globulin Ratio % Salicylates < 0.3 L (2.8-20.0) mg/dL Acetaminophen 5.0 L (10.0-30.0) ug/mL Plasma/Serum Alcohol (0-0.07) % 04/01/21 04/01/21 Range/Units 17:55 17:55 WBC (4.5-11.0) K/mm3 RBC (3.65-5.03) M/mm3 Hgb (11.8-15.2) gm/dl Hct (35.5-45.6) % MCV (84-94) fl MCH (28-32) pg MCHC (32-34) % RDW (13.2-15.2) % Plt Count (140-440) K/mm3 Add Manual Diff Total Counted Seg Neuts % (Manual) (40.0-70.0) % Lymphocytes % (Manual) (13.4-35.0) % Monocytes % (Manual) (0.0-7.3) % Nucleated RBC % Seg Neutrophils # Man (1.8-7.7) K/mm3 Band Neutrophils # K/mm3 Lymphocytes # (Manual) (1.2-5.4) K/mm3 Abs React Lymphs (Man) K/mm3 Monocytes # (Manual) (0.0-0.8) K/mm3 Eosinophils # (Manual) (0.0-0.4) K/mm3 Basophils # (Manual) (0.0-0.1) K/mm3 Metamyelocytes # K/mm3 Myelocytes # K/mm3 Promyelocytes # K/mm3 Blast Cells # K/mm3 WBC Morphology Hypersegmented Neuts Hyposegmented Neuts Hypogranular Neuts Smudge Cells Toxic Granulation Toxic Vacuolation Dohle Bodies Pelger-Huet Anomaly Jennifer Rods Platelet Estimate Clumped Platelets Plt Clumps, EDTA Large Platelets Giant Platelets Platelet Satelliting Plt Morphology Comment RBC Morphology Dimorphic RBCs Polychromasia Hypochromasia Poikilocytosis Anisocytosis Microcytosis Macrocytosis Spherocytes Pappenheimer Bodies Sickle Cells Target Cells Tear Drop Cells Ovalocytes Helmet Cells Rajan-Hilger Bodies [place] Rings Chanelle Cells Bite Cells Crenated Cell Elliptocytes Acanthocytes (Spur) Rouleaux Hemoglobin C Crystals Schistocytes Malaria parasites Erik Bodies Hem Pathologist Commnt Sodium 138 (137-145) mmol/L Potassium 3.5 L (3.6-5.0) mmol/L Chloride 99.2 (98-107) mmol/L Carbon Dioxide 19 L (22-30) mmol/L Anion Gap 23 mmol/L BUN 11 (9-20) mg/dL Creatinine 1.0 (0.8-1.3) mg/dL Estimated GFR > 60 ml/min BUN/Creatinine Ratio 11 % Glucose 124 H (75-100) mg/dL Calcium 10.4 H (8.4-10.2) mg/dL Total Bilirubin 0.80 (0.1-1.2) mg/dL AST 38 (5-40) units/L ALT 96 H (7-56) units/L Alkaline Phosphatase 105 (35-129) units/L Total Protein 8.5 H (6.3-8.2) g/dL Albumin 4.9 (3.9-5) g/dL Albumin/Globulin Ratio 1.4 % Salicylates (2.8-20.0) mg/dL Acetaminophen (10.0-30.0) ug/mL Plasma/Serum Alcohol < 0.01 (0-0.07) % - Medical Decision Making The patient's white count is likely elevated secondary to hemoconcentration secondary to clinical dehydration Critical care attestation.: If time is entered above; I have spent that time in minutes in the direct care of this critically ill patient, excluding procedure time. ED Disposition Clinical Impression: Dehydration, Encounter for psychiatric assessment Disposition: DC/TX-70 ANOTHER TYPE HLTHCARE Is pt being admited?: No Does the pt Need Aspirin: No Condition: Stable Referrals: PRIMARY CARE, [Primary Care Provider] - 3-5 Days
[2021-04-01 18:38] LABS: Alanine Aminotransferase 96 units/L (7-56); Albumin 4.9 g/dL (3.9-5); BUN/Creatinine Ratio 11; Blood Urea Nitrogen 11 mg/dL (9-20); Calcium 10.4 mg/dL (8.4-10.2); Hemolysis Index 24
[2021-04-01 19:07] LABS: Total Cells Counted 100
[2021-04-01 19:08] LABS: RBC Morphology Normal
--- NOTE | 2021-04-02 10:24 | Event Note ---
Date: 04/02/21 20-year-old male with history of autism who presented from home at the request of his mother due to abnormal behavior including not eating, and barricading himself in his room when EMS arrived. He was seen by my colleague and was medically cleared for psychiatric evaluation. His labs showed a white blood cell count of 17.8 but he was hemoconcentrated with a hemoglobin of 16.9. The patient was given fluids which he drank. He was initially tachycardic but this resolved overnight. There were no acute events overnight. He has been afebrile and with stable vital signs. Currently awaiting full psychiatric evaluation and placement
--- NOTE | 2021-04-02 11:57 | Consultation ---
History of Present Illness - Reason for Consult Consult date: 04/02/21 Reason for consult: Psychosis - History of Present Psychiatric Illness Per Ed Note: The patient presents to the emergency department via EMS for medical evaluation. Patient has a history of autism per EMS and schizophrenia. They state the patient's mother called for the assistance today because the patient has not eaten or had anything to drink for the last 2 weeks. Upon arrival they were presented with pallor of divorce attorney over the patient's medical needs. Per EMS the patient barricaded himself in the room but was not combative or psychotic with them on their arrival. Patient refuses to answer questions on my attempt to obtain history. The patient was seen resting quietly. Patient refused to any questions at this time: unable to assess. Collateral from the patient's mother Kavita: states that the patient has a history of Schizophrenia and severe psychosis with multiple inpatient admissions. The patient's mother states that the patient was started on Depakote 125mg po BID however, she states that the patient has not eaten for the past two weeks. Mother is receptive to starting patient on Risperdal 0.5mg po BID. PAST PSYCHIATRIC HISTORY: PAST MEDICAL HISTORY: None reported or document Family Psychiatric History: None reported or documented SOCIAL HISTORY: unable to assess REVIEW OF SYSTEMS: unable to assess MENTAL STATUS EXAMINATION: unable to assess Diagnoses: Schizophrenia- Treatment Plan: Risperdal 0.5mg po BID PSYCHOTHERAPY: Supportive psychotherapy provided MEDICAL: Per primary team DELIRIUM PRECAUTIONS: Please re-orient patient frequently, keep lights on during the day, and minimize benzodiazepines and opiates as these medications could worsen patient's confusion. 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 Please contact with any questions and/or concerns. Thank you for the consult. Case staffed with Dr. Alva Medications and Allergies Allergies Allergy/AdvReac Type Severity Reaction Status Date / Time No Known Allergies Allergy Unverified 07/25/13 13:43 Home Medications Medication Instructions Recorded Confirmed Last Taken Type OLANZapine [Zyprexa] 5 mg PO DAILY #30 tablet 01/28/21 03/03/21 Rx OLANzapine [Zyprexa] 10 mg PO QHS #30 tablet 01/28/21 03/03/[address] [DepaKOTE DR] 125 mg PO BID #60 tablet 03/08/21 Unknown Rx Mental Status Exam - Vital signs Last Vital Signs Temp 98.6 F 04/02/21 07:53 Pulse 80 04/02/21 07:53 Resp 16 04/02/21 07:53 BP 122/66 04/02/21 07:53 Pulse Ox 100 04/02/21 07:53 Results Result Diagrams: 04/01/21 17:55 04/01/21 17:55 Abnormal lab results 04/01/21 04/01/21 04/01/21 Range/Units 17:55 17:55 17:55 WBC 17.8 H (4.5-11.0) K/mm3 RBC 6.17 H (3.65-5.03) M/mm3 Hgb 16.9 H (11.8-15.2) gm/dl Hct 50.2 H (35.5-45.6) % MCV 81 L (84-94) fl MCH 27 L (28-32) pg Seg Neuts % (Manual) 82.0 H (40.0-70.0) % Lymphocytes % (Manual) 9.0 L (13.4-35.0) % Monocytes % (Manual) 9.0 H (0.0-7.3) % Seg Neutrophils # Man 14.6 H (1.8-7.7) K/mm3 Monocytes # (Manual) 1.6 H (0.0-0.8) K/mm3 Potassium (3.6-5.0) mmol/L Carbon Dioxide (22-30) mmol/L Glucose (75-100) mg/dL Calcium (8.4-10.2) mg/dL ALT (7-56) units/L Total Protein (6.3-8.2) g/dL Salicylates < 0.3 L (2.8-20.0) mg/dL Acetaminophen 5.0 L (10.0-30.0) ug/mL 04/01/21 Range/Units 17:55 WBC (4.5-11.0) K/mm3 RBC (3.65-5.03) M/mm3 Hgb (11.8-15.2) gm/dl Hct (35.5-45.6) % MCV (84-94) fl MCH (28-32) pg Seg Neuts % (Manual) (40.0-70.0) % Lymphocytes % (Manual) (13.4-35.0) % Monocytes % (Manual) (0.0-7.3) % Seg Neutrophils # Man (1.8-7.7) K/mm3 Monocytes # (Manual) (0.0-0.8) K/mm3 Potassium 3.5 L (3.6-5.0) mmol/L Carbon Dioxide 19 L (22-30) mmol/L Glucose 124 H (75-100) mg/dL Calcium 10.4 H (8.4-10.2) mg/dL ALT 96 H (7-56) units/L Total Protein 8.5 H (6.3-8.2) g/dL Salicylates (2.8-20.0) mg/dL Acetaminophen (10.0-30.0) ug/mL All other labs normal.
[2021-04-02] MEDS ORDERED: risperiDONE 0.25 MG TAB PO SCH (13:00)
[2021-04-03 11:19] VITALS: BP 131/76
--- NOTE | 2021-04-03 11:25 | Progress Note ---
Subjective - Reason for Consult Consult date: 04/03/21 Reason for consult: evaluation - Chief Complaint Chief complaint: The patient was seen this morning resting quietly. The patient ate breakfast. he reports doing well. States sleep and appetite as good. He denies ant current suicidal ideation and denies hallucinations. Per nurse, the patient had a quiet night. REVIEW OF SYSTEMS Constitutional: Negative for weight loss ENT: Negative for stridor Respiratory: Negative for cough or hemoptysis All other systems reviewed and are negative MENTAL STATUS EXAMINATION General Appearance and Behavior: Age appropriate, dressed appropriately, calm and cooperative Cooperation: Participating Psychomotor Behavior: psychomotor normal Mood: calm Affect and affective range: Congruent with stated mood Thought Process: Blocking Thought Content: Impoverished Speech: Normal volume, Regular rate and rhythm, Intellectual Functioning: Average Suicidal Ideation: Denied Homicidal Ideation: Denied Hallucinations: Denied Delusions: None elicited Impulse Control: Unimpaired Insight and Judgment: Limited insight and judgment, Memory: Impaired Attention: Undivided Orientation: Alert, oriented Diagnoses: Schizophrenia- Treatment Plan: Risperdal 0.5mg po BID Assessment and Plan Do not recommend acute inpatient psychiatric hospitalization at this time. Suzy ent was informed that if suicidal/homicidal ideation/withdrawal symptoms arise, He should immediately seek for emergent assistance including but not limited to crisis hot line and emergency room. The clean rice grader and reel tender to give the patient resources for a nursing home, transportation pass, CBT, med management and alcohol rehab programs The patient to follow up with outpatient psych in 7 to 14 days upon discharge The patient to abstain from alcohol use FOLLOW-UP: Will sign off Thank you for the consult. Please contact with any questions and/or concerns. Case staffed with Dr. Alva Mental Status Exam - Vital signs Last Vital Signs Temp 98.0 F 04/03/21 11:18 Pulse 90 04/03/21 11:18 Resp 20 04/03/21 11:18 BP 131/76 04/03/21 11:18 Pulse Ox 99 04/03/21 11:18
--- NOTE | 2021-04-03 11:40 | Event Note ---
Date: 04/03/21 20-year-old male with history of autism who was brought in for abnormal behavior. He was seen by my colleague and was medically cleared for psychiatric evaluation and placement. He was seen by the psychiatry team who initially recommended placement. However, today, he was seen by the mental health/psychiatry team and they feel that his behavior is more a manifestation of his autism than a mental health disorder and recommend discharge with outpatient resources. His vital signs have remained stable. We will arrange discharge with the appropriate outpatient resources for follow-up.
== END 2021-04-03 15:55 | disposition home or self-care (01) ==
LOC: EEVIPCON 16:42 → ED 16:42
DX: E86.0 Dehydration (principal); Z04.6 Encounter for general psychiatric examination, requested by authority; F20.9 Schizophrenia, unspecified; F17.200 Nicotine dependence, unspecified, uncomplicated; Z79.899 Other long term (current) drug therapy
CPT/HCPCS: 36415; 80053; 80320; 85007; 85025; G0480

== ENCOUNTER 2021-06-04 18:18 | Emergency (ER) | payer MEDICAID ==
[2021-06-04 18:48] LABS: Basophils % (Auto) 0.4 % (0.0-1.8); Eosinophils # (Auto) 0.1 K/mm3 (0.0-0.4); Eosinophils % (Auto) 0.7 % (0.0-4.3); Hematocrit 38.1 % (35.5-45.6); Hemoglobin 12.9 gm/dl (11.8-15.2); Lymphocytes # (Auto) 1.8 K/mm3 (1.2-5.4); Lymphocytes % (Auto) 19.5 % (13.4-35.0); Mean Corpuscular HGB Conc 34 % (32-34); Mean Corpuscular Volume 83 fl (84-94); Monocytes # (Auto) 0.7 K/mm3 (0.0-0.8); Monocytes % (Auto) 7.7 % (0.0-7.3); Platelet Count 313 K/mm3 (140-440); Red Blood Count 4.61 M/mm3 (3.65-5.03); Red Cell Distribution Width 14.9 % (13.2-15.2)
[2021-06-04 19:06] LABS: Alanine Aminotransferase 58 units/L (7-56); Albumin 4.1 g/dL (3.9-5); Blood Urea Nitrogen 7 mg/dL (9-20); Calcium 9.9 mg/dL (8.4-10.2); Hemolysis Index 8
[2021-06-04 19:07] LABS: BUN/Creatinine Ratio 12
--- NOTE | 2021-06-04 19:07 | Emergency Department Report ---
ED General Adult HPI - General Chief complaint: Psych Stated complaint: MH EVAL Time Seen by Provider: 06/04/21 18:24 Source: patient, EMS Mode of arrival: Stretcher Limitations: Altered Mental Status - History of Present Illness Initial comments: Patient presents to the emergency department via EMS per request of his mother for psychosis and aggressive behavior at home. The patient's mother is his power of city attorney. Per the mother the patient has been aggressive and psychotic over the last couple of days. It is not initially known that the patient is compliant with his medications. The patient only answers no to questions pertaining to being suicidal homicidal. Other than that the patient would not answer any questions as far as his mental health capacity is concerned. He does answer other review of system questions via yes or no answers. -: unknown Severity scale (0 -10): 0 Consistency: constant Improves with: none Worsens with: none Associated Symptoms: denies other symptoms Treatments Prior to Arrival: none - Related Data Previous Rx's Medication Instructions Recorded Last Taken Type OLANZapine [Zyprexa] 5 mg PO DAILY #30 tablet 01/28/21 03/03/21 Rx OLANzapine [Zyprexa] 10 mg PO QHS #30 tablet 01/28/21 03/03/[address] [DepaKOTE DR] 125 mg PO BID #60 tablet 03/08/21 Unknown Rx risperiDONE [risperiDONE ODT] 0.5 mg PO BID 30 Days #60 04/03/21 Unknown Rx tab.rapdis Allergies Allergy/AdvReac Type Severity Reaction Status Date / Time No Known Allergies Allergy Unverified 07/25/13 13:43 ED Review of Systems ROS: Stated complaint: MH EVAL Other details as noted in HPI Comment: All other systems reviewed and negative Constitutional: denies: chills, fever Eyes: denies: eye pain, eye discharge, vision change ENT: denies: ear pain, throat pain Respiratory: denies: cough, shortness of breath, wheezing Cardiovascular: denies: chest pain, palpitations Endocrine: no symptoms reported Gastrointestinal: denies: abdominal pain, nausea, diarrhea Genitourinary: denies: urgency, dysuria Musculoskeletal: denies: back pain, joint swelling, arthralgia Skin: denies: rash, lesions Neurological: denies: headache, weakness, paresthesias Psychiatric: other (Reported psychosis) Hematological/Lymphatic: denies: easy bleeding, easy bruising ED Past Medical Hx - Past Medical History Hx Psychiatric Treatment: Yes (Psychosis, Schizophrenia, Autism) - Social History Smoking Status: Never Smoker Substance Use Type: None - Medications Home Medications: Home Medications Medication Instructions Recorded Confirmed Last Taken Type OLANZapine [Zyprexa] 5 mg PO DAILY #30 tablet 01/28/21 03/03/21 Rx OLANzapine [Zyprexa] 10 mg PO QHS #30 tablet 01/28/21 03/03/[address] [DepaKOTE DR] 125 mg PO BID #60 tablet 03/08/21 Unknown Rx risperiDONE [risperiDONE ODT] 0.5 mg PO BID 30 Days #60 04/03/21 Unknown Rx tab.rapdis ED Physical Exam - General Limitations: Altered Mental Status General appearance: alert, in no apparent distress - Head Head exam: Present: atraumatic, normocephalic - Eye Eye exam: Present: normal appearance - ENT ENT exam: Present: mucous membranes dry - Neck Neck exam: Present: normal inspection - Respiratory Respiratory exam: Present: normal lung sounds bilaterally. Absent: respiratory distress - Cardiovascular Cardiovascular Exam: Present: regular rate, normal rhythm. Absent: systolic murmur, diastolic murmur, rubs, gallop - GI/Abdominal GI/Abdominal exam: Present: soft, normal bowel sounds. Absent: distended, tenderness - Rectal Rectal exam: Present: deferred - Extremities Exam Extremities exam: Present: normal inspection - Back Exam Back exam: Present: normal inspection - Neurological Exam Neurological exam: Present: alert, oriented X3, CN II-XII intact. Absent: motor sensory deficit - Psychiatric Psychiatric exam: Present: flat affect - Skin Skin exam: Present: warm, dry, intact, normal color. Absent: rash ED Course Vital Signs 06/04/21 06/04/21 06/04/21 18:20 20:00 22:46 Temperature 98.6 F Pulse Rate 70 63 Respiratory 16 18 20 Rate Blood Pressure 113/56 Blood Pressure 110/69 [Right] O2 Sat by Pulse 98 100 99 Oximetry ED Medical Decision Making - Lab Data Result diagrams: 06/04/21 18:30 06/04/21 18:30 Lab Results 06/04/21 06/04/21 06/04/21 Range/Units 18:30 18:30 18:30 WBC 9.2 (4.5-11.0) K/mm3 RBC 4.61 (3.65-5.03) M/mm3 Hgb 12.9 (11.8-15.2) gm/dl Hct 38.1 (35.5-45.6) % MCV 83 L (84-94) fl MCH 28 (28-32) pg MCHC 34 (32-34) % RDW 14.9 (13.2-15.2) % Plt Count 313 (140-440) K/mm3 Lymph % (Auto) 19.5 (13.4-35.0) % [place] % (Auto) 7.7 H (0.0-7.3) % Eos % (Auto) 0.7 (0.0-4.3) % Baso % (Auto) 0.4 (0.0-1.8) % Lymph # (Auto) 1.8 (1.2-5.4) K/mm3 [place] # (Auto) 0.7 (0.0-0.8) K/mm3 Eos # (Auto) 0.1 (0.0-0.4) K/mm3 Baso # (Auto) 0.0 (0.0-0.1) K/mm3 Seg Neutrophils % 71.7 H (40.0-70.0) % Seg Neutrophils # 6.6 (1.8-7.7) K/mm3 Sodium 140 (137-145) mmol/L Potassium 4.0 (3.6-5.0) mmol/L Chloride 101.5 (98-107) mmol/L Carbon Dioxide 31 H (22-30) mmol/L Anion Gap 12 mmol/L BUN 7 L (9-20) mg/dL Creatinine 0.6 L (0.8-1.3) mg/dL Estimated GFR > 60 ml/min BUN/Creatinine Ratio 12 % Glucose 96 (75-100) mg/dL Calcium 9.9 (8.4-10.2) mg/dL Total Bilirubin 0.80 (0.1-1.2) mg/dL AST 34 (5-40) units/L ALT 58 H (7-56) units/L Alkaline Phosphatase 70 (35-129) units/L Total Protein 7.3 (6.3-8.2) g/dL Albumin 4.1 (3.9-5) g/dL Albumin/Globulin Ratio 1.3 % Salicylates < 0.3 L (2.8-20.0) mg/dL Acetaminophen (10.0-30.0) ug/mL Plasma/Serum Alcohol (0-0.07) % 06/04/21 06/04/21 Range/Units 18:30 18:30 WBC (4.5-11.0) K/mm3 RBC (3.65-5.03) M/mm3 Hgb (11.8-15.2) gm/dl Hct (35.5-45.6) % MCV (84-94) fl MCH (28-32) pg MCHC (32-34) % RDW (13.2-15.2) % Plt Count (140-440) K/mm3 Lymph % (Auto) (13.4-35.0) % [place] % (Auto) (0.0-7.3) % Eos % (Auto) (0.0-4.3) % Baso % (Auto) (0.0-1.8) % Lymph # (Auto) (1.2-5.4) K/mm3 [place] # (Auto) (0.0-0.8) K/mm3 Eos # (Auto) (0.0-0.4) K/mm3 Baso # (Auto) (0.0-0.1) K/mm3 Seg Neutrophils % (40.0-70.0) % Seg Neutrophils # (1.8-7.7) K/mm3 Sodium (137-145) mmol/L Potassium (3.6-5.0) mmol/L Chloride (98-107) mmol/L Carbon Dioxide (22-30) mmol/L Anion Gap mmol/L BUN (9-20) mg/dL Creatinine (0.8-1.3) mg/dL Estimated GFR ml/min BUN/Creatinine Ratio % Glucose (75-100) mg/dL Calcium (8.4-10.2) mg/dL Total Bilirubin (0.1-1.2) mg/dL AST (5-40) units/L ALT (7-56) units/L Alkaline Phosphatase (35-129) units/L Total Protein (6.3-8.2) g/dL Albumin (3.9-5) g/dL Albumin/Globulin Ratio % Salicylates (2.8-20.0) mg/dL Acetaminophen 5.0 L (10.0-30.0) ug/mL Plasma/Serum Alcohol < 0.01 (0-0.07) % - Medical Decision Making Awaiting remainder of laboratory values to be medically cleared 1013 applied Awaiting mental health evaluation Critical care attestation.: If time is entered above; I have spent that time in minutes in the direct care of this critically ill patient, excluding procedure time. ED Disposition Clinical Impression: Aggressive behavior, Psychosis Disposition: [address] [place] [address] Is pt being admited?: No Does the pt Need Aspirin: No Condition: Stable
--- NOTE | 2021-06-05 09:15 | Consultation ---
History of Present Illness - Reason for Consult Consult date: 06/05/21 Reason for consult: psychosis - History of Present Psychiatric Illness Per ER Note: Patient presents to the emergency department via EMS per request of his mother for psychosis and aggressive behavior at home. The patient's mother is his power of real estate associate attorney. Per the mother the patient has been aggressive and psychotic over the last couple of days. It is not initially known that the patient is compliant with his medications. The patient only answers no to questions pertaining to being suicidal homicidal. Other than that the patient would not answer any questions as far as his mental health capacity is concerned. He does answer other review of system questions via yes or no a nswerjackson. I evaluated 20y/o Luis Armando Carlos today. He is in the seclusion room. He is standing at the door staring down. He has his fingers in his mouth and appears scared. I tap on the glass and call his name, he glances at me quickly then looks back down to the floor. Security is present and opens the door for me to speak with the patient. He is not making any sense, and has poor insight. He could not tell me why he was brought to the hospital. The nurse states the patient was placed in seclusion because he was walking the halls excessively. PAST PSYCHIATRIC HISTORY: Unable to assess PAST MEDICAL HISTORY: None reported or document Family Psychiatric History: None reported or documented SOCIAL HISTORY: unable to assess REVIEW OF SYSTEMS: unable to assess MENTAL STATUS EXAMINATION: unable to assess Assessment Schizophrenia Treatment Plan 1013 Risperdal 1mg po BID [address] 125mg po BID PSYCHOTHERAPY: Supportive psychotherapy provided MEDICAL: Per primary team DELIRIUM PRECAUTIONS: Please re-orient patient frequently, keep lights on during the day, and minimize benzodiazepines and opiates as these medications could worsen patient's confusion. CERTIFIED MASSAGE THERAPIST: Per medical team DISPOSITION: Recommend acute psychiatric inpatient treatment Will follow. Thanks. Case staffed with Dr. Alva Medications and Allergies Allergies Allergy/AdvReac Type Severity Reaction Status Date / Time No Known Allergies Allergy Unverified 07/25/13 13:43 Home Medications Medication Instructions Recorded Confirmed Last Taken Type OLANZapine [Zyprexa] 5 mg PO DAILY #30 tablet 01/28/21 03/03/21 Rx OLANzapine [Zyprexa] 10 mg PO QHS #30 tablet 01/28/21 03/03/[address] [DepaKOTE DR] 125 mg PO BID #60 tablet 03/08/21 Unknown Rx risperiDONE [risperiDONE ODT] 0.5 mg PO BID 30 Days #60 04/03/21 Unknown Rx tab.rapdis Mental Status Exam - Vital signs Last Vital Signs Temp 98.6 F 06/04/21 20:00 Pulse 63 06/04/21 20:00 Resp 20 06/04/21 22:46 BP 110/69 06/04/21 20:00 Pulse Ox 99 06/04/21 22:46 Results Result Diagrams: 06/04/21 18:30 06/04/21 18:30 Abnormal lab results 06/04/21 06/04/21 06/04/21 Range/Units 18:30 18:30 18:30 MCV 83 L (84-94) fl [place] % (Auto) 7.7 H (0.0-7.3) % Seg Neutrophils % 71.7 H (40.0-70.0) % Carbon Dioxide 31 H (22-30) mmol/L BUN 7 L (9-20) mg/dL Creatinine 0.6 L (0.8-1.3) mg/dL ALT 58 H (7-56) units/L Salicylates < 0.3 L (2.8-20.0) mg/dL Acetaminophen (10.0-30.0) ug/mL 06/04/21 Range/Units 18:30 MCV (84-94) fl [place] % (Auto) (0.0-7.3) % Seg Neutrophils % (40.0-70.0) % Carbon Dioxide (22-30) mmol/L BUN (9-20) mg/dL Creatinine (0.8-1.3) mg/dL ALT (7-56) units/L Salicylates (2.8-20.0) mg/dL Acetaminophen 5.0 L (10.0-30.0) ug/mL All other labs normal.
[2021-06-05] MEDS: risperiDONE 1 MG TAB PO SCH ×2 (10:04→22:35)
[2021-06-05] MEDS: DIVALPROEX DR 125 MG TAB PO SCH ×2 (10:04→22:35)
[2021-06-05] MEDS ORDERED: LORazepam 2 MG/ML VIAL IM PRN (10:18)
[2021-06-05] MEDS ORDERED: diphenhydrAMINE 25 MG CAP PO PRN (10:18)
[2021-06-05] MEDS ORDERED: ACETAMINOPHEN 325 MG TAB PO PRN (10:18)
--- NOTE | 2021-06-05 10:18 | Event Note ---
Date: 06/05/21 The patient was evaluated in the emergency department for symptoms described in the history of present illness. He/she was evaluated in the context of the global COVID-19 pandemic, which necessitated consideration that the patient might be at risk for infection with the virus that causes COVID-19. Institutional protocols and algorithms that pertain to the evaluation of patients at risk for COVID-19 are in a state of rapid change based on information released by regulatory bodies including the CDC and federal and state organizations. These policies and algorithms were followed during the patient's care in the emergency department. Please note that these policies, procedures and recommendations changed on a rapid basis. ER documentation, nursing and psychiatric documentation reviewed and appreciated. Laboratory studies are reviewed and appreciated. On my examination the patient is standing up, moving 4 extremities, breathing co mfortably, and he denies physical pain. The patient was placed in seclusion for constant wandering, and not following redirection. Have requested that psychiatric team consider consulting mobile crisis team, given this patient's history of developmental delay and autism. Medically speaking, this patient does not appear to have an acute medical decompensation at this time which would preclude psychiatric consultation, disposition and final placement. The psychiatry team advises that mobile crisis unit will be involved in this patient's care, however, they typically will not show up until the patient has provided a urine drug screen. Urine drug screen is pending, as well as urinalysis. However, we would not predicate medical decisions off of the urine drug screen. In the unlikely event this patient has a urinary tract infection or pyuria/bacteriuria, the ER will be ready to administer treatment. Vital Signs 06/04/21 06/04/21 06/04/21 18:20 20:00 22:46 Temperature 98.6 F Pulse Rate 70 63 Respiratory 16 18 20 Rate Blood Pressure 113/56 Blood Pressure 110/69 [Right] O2 Sat by Pulse 98 100 99 Oximetry Lab Results 06/04/21 06/04/21 06/04/21 Range/Units 18:30 18:30 18:30 WBC 9.2 (4.5-11.0) K/mm3 RBC 4.61 (3.65-5.03) M/mm3 Hgb 12.9 (11.8-15.2) gm/dl Hct 38.1 (35.5-45.6) % MCV 83 L (84-94) fl MCH 28 (28-32) pg MCHC 34 (32-34) % RDW 14.9 (13.2-15.2) % Plt Count 313 (140-440) K/mm3 Lymph % (Auto) 19.5 (13.4-35.0) % [place] % (Auto) 7.7 H (0.0-7.3) % Eos % (Auto) 0.7 (0.0-4.3) % Baso % (Auto) 0.4 (0.0-1.8) % Lymph # (Auto) 1.8 (1.2-5.4) K/mm3 [place] # (Auto) 0.7 (0.0-0.8) K/mm3 Eos # (Auto) 0.1 (0.0-0.4) K/mm3 Baso # (Auto) 0.0 (0.0-0.1) K/mm3 Seg Neutrophils % 71.7 H (40.0-70.0) % Seg Neutrophils # 6.6 (1.8-7.7) K/mm3 Sodium 140 (137-145) mmol/L Potassium 4.0 (3.6-5.0) mmol/L Chloride 101.5 (98-107) mmol/L Carbon Dioxide 31 H (22-30) mmol/L Anion Gap 12 mmol/L BUN 7 L (9-20) mg/dL Creatinine 0.6 L (0.8-1.3) mg/dL Estimated GFR > 60 ml/min BUN/Creatinine Ratio 12 % Glucose 96 (75-100) mg/dL Calcium 9.9 (8.4-10.2) mg/dL Total Bilirubin 0.80 (0.1-1.2) mg/dL AST 34 (5-40) units/L ALT 58 H (7-56) units/L Alkaline Phosphatase 70 (35-129) units/L Total Protein 7.3 (6.3-8.2) g/dL Albumin 4.1 (3.9-5) g/dL Albumin/Globulin Ratio 1.3 % Salicylates < 0.3 L (2.8-20.0) mg/dL Acetaminophen (10.0-30.0) ug/mL Plasma/Serum Alcohol (0-0.07) % 06/04/21 06/04/21 Range/Units 18:30 18:30 WBC (4.5-11.0) K/mm3 RBC (3.65-5.03) M/mm3 Hgb (11.8-15.2) gm/dl Hct (35.5-45.6) % MCV (84-94) fl MCH (28-32) pg MCHC (32-34) % RDW (13.2-15.2) % Plt Count (140-440) K/mm3 Lymph % (Auto) (13.4-35.0) % [place] % (Auto) (0.0-7.3) % Eos % (Auto) (0.0-4.3) % Baso % (Auto) (0.0-1.8) % Lymph # (Auto) (1.2-5.4) K/mm3 [place] # (Auto) (0.0-0.8) K/mm3 Eos # (Auto) (0.0-0.4) K/mm3 Baso # (Auto) (0.0-0.1) K/mm3 Seg Neutrophils % (40.0-70.0) % Seg Neutrophils # (1.8-7.7) K/mm3 Sodium (137-145) mmol/L Potassium (3.6-5.0) mmol/L Chloride (98-107) mmol/L Carbon Dioxide (22-30) mmol/L Anion Gap mmol/L BUN (9-20) mg/dL Creatinine (0.8-1.3) mg/dL Estimated GFR ml/min BUN/Creatinine Ratio % Glucose (75-100) mg/dL Calcium (8.4-10.2) mg/dL Total Bilirubin (0.1-1.2) mg/dL AST (5-40) units/L ALT (7-56) units/L Alkaline Phosphatase (35-129) units/L Total Protein (6.3-8.2) g/dL Albumin (3.9-5) g/dL Albumin/Globulin Ratio % Salicylates (2.8-20.0) mg/dL Acetaminophen 5.0 L (10.0-30.0) ug/mL Plasma/Serum Alcohol < 0.01 (0-0.07) %
[2021-06-05] MEDS ORDERED: HALOPERIDOL LACTATE 5 MG/1 ML INJ IM PRN (10:21)
[2021-06-05 21:05] LABS: Bilirubin,Urine SM (Negative); Blood,Urine NEG (Negative); Color,Urine Amber (Yellow); Mucus,Urine 3+ /HPF
[2021-06-05 21:08] LABS: Amphetamine Screen,Urine Negative; Benzodiazepines Screen,Urine Negative; Cannabinoid Screen,Urine Negative; Cocaine Screen,Urine Negative; Methadone Screen,Urine Negative; Opiate Screen,Urine Negative
[2021-06-05 21:32] LABS: Ictotest,Urine Negative (Negative)
[2021-06-05 21:43] VITALS: BP 120/80
[2021-06-06] MEDS: DIVALPROEX DR 125 MG TAB PO SCH (09:58)
[2021-06-06] MEDS: risperiDONE 1 MG TAB PO SCH (09:59)
--- NOTE | 2021-06-06 10:20 | Event Note ---
No current issues. Vital signs are stable. Patient is comfortable. Patient is medically clear for psychiatric care. Coronavirus PCR test ordered.
--- NOTE | 2021-06-06 11:09 | Progress Note ---
Subjective - Reason for Consult Consult date: 06/06/21 Reason for consult: mental health evaluation - Chief Complaint Chief complaint: The patient was seen resting quietly in the room. The patient reports having non commanding auditory hallucinations. He reports that he stopped taking medications about a year ago because he felt that he did not need it and that he had been taking it for a long time. The patient denies any current suicidal/homicidal ideation. Psychiatric History Diagnoses: Schizophrenia Suicide attempts or Self-harm behavior: Denies Prior psychiatric hospitalizations: Yes Substance Abuse history: Denies Previous psychiatric medications tried: Unknown Outpatient treatment: not currently PAST MEDICAL HISTORY: None reported Family Psychiatric History: None reported or documented SOCIAL HISTORY Marital Status: Single Living Arrangements: Lives with mom Employment Status:unemployed Access to guns/weapons: Denies Education: 11th grade History of Abuse: Denies Legal History: none reported REVIEW OF SYSTEMS Constitutional: Negative for weight loss ENT: Negative for stridor Respiratory: Negative for cough or hemoptysis All other systems reviewed and are negative MENTAL STATUS EXAMINATION General Appearance: Dressed appropriately Behavior: Cooperative Mood: "Ok" Affect and affective range: congruent to stated mood Thought Process: goal directed Speech: normal rate and volume Thought Content: Not suicidal Suicidal Ideation: Denies Homicidal Ideation: Denies HI Hallucinations: Yes Delusions: none elicited Insight and Judgment: Limited Memory/Cognition: Limited Attention: Normal ASSESSMENT Schizophrenia Treatment Plan DC 1013 Zyprexa 10mg po BID Sitter: Defer to medical Medical: Per priamary Disposition: Do not recommend acute psychiatric inpatient treatment Will follow. Thanks Case staffed with Dr. Alva Mental Status Exam - Vital signs Last Vital Signs Temp 98.6 F 06/05/21 20:00 Pulse 79 06/05/21 20:00 Resp 18 06/05/21 20:00 BP 120/80 06/05/21 20:00 Pulse Ox 100 06/05/21 21:43
== END 2021-06-06 15:35 | disposition home or self-care (01) ==
LOC: ED 18:18
DX: F29 Unspecified psychosis not due to a substance or known physiological condition (principal); F91.1 Conduct disorder, childhood-onset type; F20.9 Schizophrenia, unspecified; F84.0 Autistic disorder
CPT/HCPCS: 36415; 80053; 80307; 80320; 81001; 85025; 99284; 99285; G0480

== ENCOUNTER 2021-11-18 21:17 | Emergency (ER) | payer MEDICAID ==
[2021-11-18] MEDS ORDERED: ZIPRASIDONE MESYLATE 20 MG VIAL IM ONE (21:23)
[2021-11-18] MEDS ORDERED: LORazepam 2 MG/ML VIAL ONE (21:24)
[2021-11-18] MEDS ORDERED: LORazepam 2 MG/ML VIAL IM ONE (21:24)
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
[2021-11-18] MEDS ORDERED: LORazepam 2 MG/ML VIAL IM PRN (23:03)
[2021-11-18] MEDS ORDERED: HALOPERIDOL LACTATE 5 MG/1 ML INJ IM PRN (23:03)
[2021-11-19 00:29] LABS: BUN/Creatinine Ratio 15; Blood Urea Nitrogen 12 mg/dL (9-20); Calcium 9.4 mg/dL (8.4-10.2); Hemolysis Index 11
[2021-11-19 00:39] LABS: Hematocrit 42.5 % (35.5-45.6); Hemoglobin 13.6 gm/dl (11.8-15.2); Mean Corpuscular HGB Conc 32 % (32-34); Mean Corpuscular Volume 85 fl (84-94); Platelet Count 339 K/mm3 (140-440); Red Blood Count 5.03 M/mm3 (3.65-5.03); Red Cell Distribution Width 14.2 % (13.2-15.2)
[2021-11-19 09:22] VITALS: BP 109/62
--- NOTE | 2021-11-19 11:28 | Consultation ---
History of Present Illness - Reason for Consult Consult date: 11/19/21 Reason for consult: MHE - History of Present Psychiatric Illness The patient was seen today. He states he was brought in by police. The patient has autism disorder and schizophrenia. He is calm and cooperative. The patient says he is unsure of why the police brought him. He says "they really bought me for nothing." He then says "it was family issues." The patient would not elaborate on what the family issues were. The patient says he has a history of schizophrenia, but states he did not know his meds. The patient denies SI/HI or hallucinations of any kind. The nurse caring for the patient today, states he has been calm and cooperative, with no behavioral issues. REVIEW OF SYSTEMS Constitutional: Negative for weight loss ENT: Negative for stridor Respiratory: Negative for cough or hemoptysis All other systems reviewed and are negative MENTAL STATUS EXAMINATION General Appearance and Behavior: Age appropriate, good hygiene, wearing a ppropriate clothes, calm and cooperative. Cooperation: Participating/engaged Psychomotor Behavior: normal Mood: okay Affect and affective range: congruent with mood Thought Process: circumstantial Thought Content: None Speech: Normal volume, Regular rate and rhythm, Suicidal Ideation: Denies Homicidal Ideation: Denies Hallucinations: Denies Delusions: None elicited Impulse Control: Limited Insight and Judgment: Limited insight and judgment, Memory: Limited Attention: Normal Orientation: Alert, oriented Assessment Autism Disorder Hx of Schizophrenia Treatment Plan Continue home medications PSYCHOTHERAPY: Supportive psychotherapy provided MEDICAL: Per primary team DELIRIUM PRECAUTIONS: Please re-orient patient frequently, keep lights on during the day, and minimize benzodiazepines and opiates as these medications could worsen patient's confusion. 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 Thanks. Case staffed with Dr. Alva Medications and Allergies Allergies Allergy/AdvReac Type Severity Reaction Status Date / Time No Known Allergies Allergy Unverified 07/25/13 13:43 Home Medications Medication Instructions Recorded Confirmed Last Taken Type OLANZapine [Zyprexa] 5 mg PO DAILY #30 tablet 01/28/21 06/05/21 03/03/21 Rx OLANzapine [Zyprexa] 10 mg PO QHS #30 tablet 01/28/21 06/05/21 03/03/[address] [DepaKOTE DR] 125 mg PO BID #60 tablet 03/08/21 06/05/21 Unknown Rx risperiDONE [risperiDONE ODT] 0.5 mg PO BID 30 Days #60 04/03/21 06/05/21 Unknown Rx tab.rapdis OLANzapine [ZyPREXA] 10 mg PO BID 30 Days #60 tablet 06/06/21 Unknown Rx Active Meds: Active Medications Haloperidol Lactate (Haloperidol Lactate 5 Mg/1 Ml Inj) 5 mg IM Q6HR PRN PRN Reason: Agitation Last Admin: 11/18/21 23:35 Dose: 5 mg Lorazepam (Lorazepam 2 Mg/Ml Vial) 2 mg IM Q4HR PRN PRN Reason: Agitation Last Admin: 11/18/21 23:35 Dose: 2 mg Mental Status Exam - Vital signs Last Vital Signs Temp 98.8 F 11/19/21 09:21 Pulse 89 11/19/21 09:21 Resp 18 11/19/21 09:21 BP 109/62 11/19/21 09:21 Pulse Ox 100 11/19/21 09:21 Results Result Diagrams: 11/18/21 23:56 11/18/21 23:56 Abnormal lab results 11/18/21 11/18/21 11/18/21 Range/Units 23:56 23:56 23:56 WBC (4.5-11.0) K/mm3 MCH (28-32) pg Carbon Dioxide 21 L (22-30) mmol/L Salicylates < 0.3 L (2.8-20.0) mg/dL Acetaminophen 5.0 L (10.0-30.0) ug/mL Valproic Acid < 2.8 L (50-100) ug/mL 11/18/21 Range/Units 23:56 WBC 19.0 H (4.5-11.0) K/mm3 MCH 27 L (28-32) pg Carbon Dioxide (22-30) mmol/L Salicylates (2.8-20.0) mg/dL Acetaminophen (10.0-30.0) ug/mL Valproic Acid (50-100) ug/mL All other labs normal.
== END 2021-11-19 15:38 | disposition home or self-care (01) ==
LOC: ED 21:17
DX: Z13.30 Encounter for screening examination for mental health and behavioral disorders, unspecified (principal); F20.9 Schizophrenia, unspecified; Z00.00 Encounter for general adult medical examination without abnormal findings; Z20.822 Contact with and (suspected) exposure to COVID-19
CPT/HCPCS: 36415; 80048; 80164; 85027; 96372; 99284; J1630; J2060; J3486; U0003; 80320; G0480

== ENCOUNTER 2021-11-20 16:26 | Emergency (ER) | payer MEDICAID ==
[2021-11-20 16:31] VITALS: BP 127/76
== END 2021-11-20 17:30 | disposition left against medical advice (07) ==
LOC: ED 16:26
DX: Z53.21 Procedure and treatment not carried out due to patient leaving prior to being seen by health care provider (principal)

== ENCOUNTER 2021-11-30 00:45 | Emergency (ER) | payer MEDICAID ==
[2021-11-30] MEDS ORDERED: LORazepam 2 MG/ML VIAL IM ONE (00:49)
[2021-11-30] MEDS ORDERED: ZIPRASIDONE MESYLATE 20 MG VIAL IM ONE ×2 (00:49→00:50)
[2021-11-30] MEDS ORDERED: LORazepam 2 MG/ML VIAL ONE (00:50)
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
--- NOTE | 2021-11-30 09:05 | Emergency Department Report ---
Blank Doc - Documentation Documentation: Patient has been resting after chemical sedation. Labs and psychiatric evalua tion are pending. 1130-labs have been reviewed. Psychiatric disposition is still pending. It appears admission as planned.
[2021-11-30 09:59] LABS: Blood Urea Nitrogen 11 mg/dL (9-20); Calcium 9.9 mg/dL (8.4-10.2); Hemolysis Index 23
[2021-11-30 10:01] LABS: BUN/Creatinine Ratio 16
[2021-11-30 10:36] LABS: Basophils % (Auto) 0.4 % (0.0-1.8); Eosinophils # (Auto) 0.2 K/mm3 (0.0-0.4); Eosinophils % (Auto) 1.6 % (0.0-4.3); Hematocrit 44.6 % (35.5-45.6); Lymphocytes # (Auto) 3.3 K/mm3 (1.2-5.4); Lymphocytes % (Auto) 29.2 % (13.4-35.0); Mean Corpuscular HGB Conc 34 % (32-34); Mean Corpuscular Volume 85 fl (84-94); Monocytes % (Auto) 9.1 % (0.0-7.3); Platelet Count 315 K/mm3 (140-440); Red Blood Count 5.26 M/mm3 (3.65-5.03); Red Cell Distribution Width 14.9 % (13.2-15.2)
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
[2021-11-30] MEDS ORDERED: ZIPRASIDONE MESYLATE 20 MG VIAL IM PRN (11:27)
[2021-11-30] MEDS: DIVALPROEX DR 125 MG TAB PO SCH ×3 (15:39→22:00)
[2021-11-30] MEDS: risperiDONE 0.25 MG TAB PO SCH ×2 (15:39→22:00)
[2021-12-01 05:52] LABS: Bilirubin,Urine NEG (Negative); Blood,Urine NEG (Negative); Color,Urine Yellow (Yellow); Mucus,Urine FEW /HPF; Protein,Urine <15 mg/dL mg/dL (Negative); RBC,Urine < 1.0 /HPF (0.0-6.0)
[2021-12-01 05:59] LABS: Amphetamine Screen,Urine Negative; Benzodiazepines Screen,Urine Negative; Cannabinoid Screen,Urine Negative; Cocaine Screen,Urine Negative; Methadone Screen,Urine Negative; Opiate Screen,Urine Negative
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
[2021-12-01] MEDS: DIVALPROEX DR 250 MG TAB PO SCH (10:47)
[2021-12-01] MEDS: risperiDONE 1 MG TAB PO SCH (10:47)
--- NOTE | 2021-12-01 11:23 | Event Note ---
Date: 12/01/21 The patient was evaluated in the emergency department for symptoms described in the history of present illness. He/she was evaluated in the context of the global COVID-19 pandemic, which necessitated consideration that the patient might be at risk for infection with the virus that causes COVID-19. Institutional protocols and algorithms that pertain to the evaluation of patients at risk for COVID-19 are in a state of rapid change based on information released by regulatory bodies including the CDC and federal and state organizations. These policies and algorithms were followed during the patient's care in the emergency department. Please note that these policies, procedures and recommendations changed on a rapid basis. Laboratory studies, vital signs, nursing documentation, ER documentation, and psychiatric documentation are reviewed and appreciated. Nursing team reports no acute events this morning or concerns. The patient is awake and appears to be actively psychotic. He is awake, protecting airway and moving 4 extremities The patient was deemed medically suitable for psychiatric disposition and placement during his initial ER evaluation. The patient continues to remain medically suitable for psychiatric placement and disposition. He is currently pending psychiatric placement.
[2021-12-02] MEDS: risperiDONE 1 MG TAB PO SCH ×3 (01:00→22:00)
[2021-12-02] MEDS: DIVALPROEX DR 250 MG TAB PO SCH ×3 (01:00→20:00)
--- NOTE | 2021-12-02 09:44 | Progress Note ---
Subjective - Reason for Consult Consult date: 12/02/21 Reason for consult: psychosis - Chief Complaint Chief complaint: The patient was seen today. He is still in the seclusion room. He is staring and slow to respond. He appears confused and out of it. I ask him how was he doing, he shakes his head. He continues to stare at the wall. REVIEW OF SYSTEMS Constitutional: Negative for weight loss ENT: Negative for stridor Respiratory: Negative for cough or hemoptysis All other systems reviewed and are negative MENTAL STATUS EXAMINATION Unable to obtain Assessment Schizophrenia Treatment Plan 1013 Risperidone 1mg po BID Increase Depakote DR 250mg po TID Geodon 20mg IM q4h prn agitation PSYCHOTHERAPY: Supportive psychotherapy provided MEDICAL: Per primary team DELIRIUM PRECAUTIONS: Please re-orient patient frequently, keep lights on during the day, and minimize benzodiazepines and opiates as these medications could worsen patient's confusion. 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 Thanks Case staffed with Dr. Alva Mental Status Exam - Vital signs Last Vital Signs Temp 97.8 F 12/02/21 08:21 Pulse 83 12/02/21 08:21 Resp 20 12/02/21 08:21 BP 124/79 12/02/21 08:21 Pulse Ox 100 12/02/21 08:21
--- NOTE | 2021-12-02 12:10 | Event Note ---
Date: 12/02/21 The patient was evaluated in the emergency department for symptoms described in the history of present illness. He/she was evaluated in the context of the global COVID-19 pandemic, which necessitated consideration that the patient might be at risk for infection with the virus that causes COVID-19. Institutional protocols and algorithms that pertain to the evaluation of patients at risk for COVID-19 are in a state of rapid change based on information released by regulatory bodies including the CDC and federal and state organizations. These policies and algorithms were followed during the patient's care in the emergency department. Please note that these policies, procedures and recommendations changed on a rapid basis. Laboratory studies, vital signs, nursing documentation, ER documentation, and psychiatric documentation are reviewed and appreciated. Nursing team reports no acute events this morning or concerns. The patient is awake and ambulating and does not appear to be in any acute distress. He appears less psychotic than yesterday, but is still psychotic and disorganized. He refused vital signs and medications this morning. The patient was deemed medically suitable for psychiatric disposition and placement during his initial ER evaluation. The patient continues to remain medically suitable for psychiatric placement and disposition. He is currently pending psychiatric placement.
[2021-12-03] MEDS: DIVALPROEX DR 250 MG TAB PO SCH ×3 (08:01→22:50)
[2021-12-03] MEDS: risperiDONE 1 MG TAB PO SCH ×3 (09:37→22:50)
--- NOTE | 2021-12-03 09:56 | Progress Note ---
Subjective - Reason for Consult Consult date: 12/03/21 Reason for consult: psychosis - Chief Complaint Chief complaint: The patient was seen today. He is still in the seclusion room. He appears less psychotic, but is still having some psychosis. He is actually talking to me and denies SI/HI. He is laughing out loud. He endorses hearing voices but could not tell me what the voices where. REVIEW OF SYSTEMS Constitutional: Negative for weight loss ENT: Negative for stridor Respiratory: Negative for cough or hemoptysis All other systems reviewed and are negative MENTAL STATUS EXAMINATION Unable to obtain Assessment Schizophrenia Treatment Plan 1013 Increase Risperidone 1mg po TID Depakote DR 250mg po TID Geodon 20mg IM q4h prn agitation PSYCHOTHERAPY: Supportive psychotherapy provided MEDICAL: Per primary team DELIRIUM PRECAUTIONS: Please re-orient patient frequently, keep lights on during the day, and minimize benzodiazepines and opiates as these medications could worsen patient's confusion. 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 Thanks Case staffed with Dr. Alva Mental Status Exam - Vital signs Last Vital Signs Temp 97.8 F 12/02/21 22:36 Pulse 79 12/02/21 22:36 Resp 18 12/02/21 22:36 BP 120/71 12/02/21 22:36 Pulse Ox 99 12/03/21 09:10
--- NOTE | 2021-12-03 12:03 | Event Note ---
Date: 12/03/21 S: Patient refused meds this morning then changed his mind. Patient refused vitals. No other events reported overnight O: Patient refused vitals. A: Schizophrenia PE: 1013/awaiting inpatient psych
[2021-12-04] MEDS: DIVALPROEX DR 250 MG TAB PO SCH ×2 (02:54→07:52)
[2021-12-04] MEDS: risperiDONE 1 MG TAB PO SCH ×2 (02:55→07:52)
[2021-12-04 08:18] VITALS: BP 108/64
--- NOTE | 2021-12-04 11:11 | Progress Note ---
Subjective - Reason for Consult Consult date: 12/04/21 Reason for consult: psychosis - Chief Complaint Chief complaint: The patient was seen today. He is no longer in the seclusion room. He is asleep but he easily arouses. He does drift on and off. The patient sits up to speak with me. He says he feels good, but states he hears the voices a little. I ask the patient what were they saying, he says "nothing, just hear noises sometimes." He denies SI/HI. He says "just gone chill when I go home." REVIEW OF SYSTEMS Constitutional: Negative for weight loss ENT: Negative for stridor Respiratory: Negative for cough or hemoptysis All other systems reviewed and are negative MENTAL STATUS EXAMINATION Unable to obtain Assessment Schizophrenia Treatment Plan d/c 1013 Risperidone 1mg po TID Dep[address] 250mg po TID PSYCHOTHERAPY: Supportive psychotherapy provided MEDICAL: Per primary team DELIRIUM PRECAUTIONS: Please re-orient patient frequently, keep lights on during the day, and minimize benzodiazepines and opiates as these medications could worsen patient's confusion. 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 Thanks Case staffed with Dr. Alva Mental Status Exam - Vital signs Last Vital Signs Temp 97.3 F L 12/04/21 08:18 Pulse 75 12/04/21 08:18 Resp 16 12/04/21 08:18 BP 108/64 12/04/21 08:18 Pulse Ox 100 12/04/21 08:18
--- NOTE | 2021-12-04 11:52 | Event Note ---
Date: 12/04/21 vss no distress , no events overnight medically cleared recommend inpatient psych
--- NOTE | 2021-12-04 13:46 | Event Note ---
Date: 12/04/21 pt was released by psych for OP management
== END 2021-12-04 13:51 | disposition home or self-care (01) ==
LOC: EEVIPCON 00:45 → ED 00:45
DX: F23 Brief psychotic disorder (principal); Z20.822 Contact with and (suspected) exposure to COVID-19
CPT/HCPCS: 36415; 80048; 80307; 81001; 85025; 96372; 99284; J2060; J3486; U0003; 80320; G0480